=== PATIENT | female | born 1950 | race Caucasian/White ===

== ENCOUNTER 2019-04-08 18:57 | Inpatient (IN) | payer MEDICARE, MEDICAID ==
[2019-04-08 20:26] LABS: Analyzer IN Cardio ER; Base Excess (BEa) 0.9 mEq/L (-2.0 to +3.0); Calcium, Ionized 1.11 mmol/L (1.12-1.30); Carboxyhemoglobin (COHb) 5.7 gm% (0.0-3.0); Hemoglobin (Hb) 16.2 g/dL (12.0-16.0)
[2019-04-08] MEDS ORDERED: Albuterol Sulfate 2.5 mg/3 ml Neb ONE (20:28)
[2019-04-08 20:32] LABS: ALV-art Gradient 97.635 (0-20); CO2 Tension 60.1 mmHg (35.0-45.0); O2 Tension (PaO2) 55.4 mmHg (> 80.0); Puncture Site LRA
[2019-04-08 22:02] VITALS: BMI 31.8
[2019-04-08] MEDS ORDERED: Senokot S 8.6-50 MG TAB PO PRN (22:47)
[2019-04-08] MEDS ORDERED: Ipratropium Bromide 2.5 ml Neb NEB PRN (23:01)
[2019-04-09 01:40] LABS: Anion Gap 13 mmol/L (10-20); BUN (Urea Nitrogen) 10 mg/dL (9.8-20.1); Calc. Creatinine Clearance 113 mL/min (70-130); Calcium 8.6 mg/dL (7.8-10.44); Carbon Dioxide 27 mmol/L (23-31); Chloride 100 mmol/L (98-107); Estimated GFR-MDRD 89; Glucose 118 mg/dL (80-115); Potassium 5.6 mmol/L (3.5-5.1); Sodium 134 mmol/L (136-145)
--- NOTE | 2019-04-09 01:45 | HP ---
CHIEF COMPLAINT: Shortness of breath. HISTORY OF PRESENT ILLNESS: The patient is a very pleasant 68-year-old female with headache, history of COPD. She is currently on 2 L of oxygen day and night, who presents to the hospital with complaints of sudden onset of shortness of breath. The patient continues to smoke about 2 packs a day and she has severe COPD with 2 L of oxygen. The patient states that she has been feeling well. However, today, she started having sudden onset of worsening shortness of breath. She tried neb treatments a few times in the day. However, her shortness of breath did not improve, so she came into the ER for further evaluation. She also reports cough x1 week, however has no productive sputum. The patient initially was found to be hypoxic in the ER. She was initially given breathing treatments and was put on oxygen and then on BiPAP and was admitted into the hospital for further evaluation. PAST MEDICAL HISTORY: She has history of COPD. She currently does not have a watcher automat long goods. The patient denies any history of heart disease. PAST SURGICAL HISTORY: She has had left knee arthroscopy. She has also had some spinal surgery and laminectomy. She has also had tubal ligation. SOCIAL HISTORY: She drinks every day, less than 5 drinks per day. She denies any drug use. However, she currently smokes 2 packs a day. She is currently do not resuscitate. I spoke with the patient and she agreed. She did not want any intubation, no CPR, no chest compressions. FAMILY HISTORY: Paternal history of hypertension. Maternal history of cardiac disease and aneurysms. ALLERGIES: SHE IS ALLERGIC TO PENICILLIN. MEDICATIONS: Lyrica 75 mg daily and also some DuoNeb that she takes as needed. The other medications she is not sure, I have advised her to bring a list or ask her family to bring in the list. REVIEW OF SYSTEMS: All negative except for the ones mentioned above in the HPI. PHYSICAL EXAMINATION: VITAL SIGNS: As of the following; temperature of 98.7, heart rate of 105, respirations were 22, blood pressure 109/59. GENERAL: She is awake, alert, currently on a BiPAP, oriented x3. She does not appear in any distress. HEENT: Normocephalic, atraumatic. No lymphadenopathy noted. Pupils are equal and reactive to light. CV: S1 and S2 present. No murmurs, rubs, or gallops. She appears to be sinus tach. LUNGS: Mild expiratory wheezing all over. ABDOMEN: Soft and nontender. Bowel sounds are present x2. EXTREMITIES: No edema. Pedal pulses are present x2. NEUROLOGIC: No focal deficits noted. SKIN: No cuts, lesions or bruises noted. LABORATORY RESULTS: As of the following; WBCs of 6.4, hemoglobin of 16.6, hematocrit of 57.6, her platelets are 230. Chemistry, sodium of 138, potassium of 5.6, BUN of 8, creatinine of 0.67. Repeat potassium was 5.3. Her BNP was 108. She did have a chest x-ray done, which indicated moderate cardiomegaly, mild with pulmonary vascular congestion. ASSESSMENT AND PLAN: The patient is a 68-year-old female, who presents to the hospital with sudden onset of shortness of breath. 1. Acute hypoxemic and hypercapnic respiratory failure, most likely secondary to chronic obstructive pulmonary disease exacerbation versus cardiac. We will get an echocardiogram. We will start her on DuoNeb. We will also start her on some steroids. Pulmonary critical is going to see her. I will start her on prophylactic antibiotics. Her BNP was just mildly elevated at 108. 2. Shortness of breath could be secondary to chronic obstructive pulmonary disease exacerbation. I do not see an echocardiogram. I will also go ahead and order an echocardiogram on this patient. She states that she has never really had any heart issues or strokes. However, given her history of smoking, I will order an echocardiogram. We will start her on some prophylactic antibiotics. Also, she did have a respiratory viral swab which was negative for influenza. She is currently on a BiPAP 10 or 5. Her sats have been maintained. I have advised her against smoking. She does not want a nicotine patch. We will continue the DuoNeb only with ipratropium to prevent any further tachycardia. She is currently in the IMCU and will be seen by Pulmonary Critical Care. I will also start her on some IV steroids. 3. She has significant polycythemia. This could be secondary to her severe chronic obstructive pulmonary disease. However, I see no trends that she has always had a significant amount of polycythemia. We will continue to monitor. However, this may warrant further investigation if it continues and does not improve. 4. Hyperkalemia. Her potassium initially was 5.6. Her repeat one was 5.3. I have ordered another stat BMP, which is pending. 5. Deep venous thrombosis prophylaxis. We will put the patient on subcu heparin or Lovenox. Job ID: [id number]
[2019-04-09] MEDS: Ipratropium Bromide 2.5 ml Neb NEB SCH ×3 (02:07→11:03)
[2019-04-09 05:03] LABS: Anion Gap 12 mmol/L (10-20); BUN (Urea Nitrogen) 11 mg/dL (9.8-20.1); Calc. Creatinine Clearance 115 mL/min (70-130); Calcium 8.7 mg/dL (7.8-10.44); Carbon Dioxide 29 mmol/L (23-31); Chloride 99 mmol/L (98-107); Estimated GFR-MDRD Greater than 90; Glucose 117 mg/dL (80-115); Potassium 5.1 mmol/L (3.5-5.1); Sodium 135 mmol/L (136-145)
[2019-04-09 05:04] LABS: #Lymphocytes 0.9 thou/uL (1.20-3.40); #Monocytes 0.1 thou/uL (0.11-0.59); #Neutrophils 3.8 thou/uL (1.40-6.50); %Basophils 0.8 % (0.0-1.0); %Eosinophils 0.4 % (0.0-10.0); %Lymphocytes 18.4 % (21.0-51.0); %Monocytes 2.2 % (0.0-10.0); %Neutrophils 78.2 % (42.0-75.0); Hypochromia SLIGHT = 6-15 cells (100X) (0-5/hpf); MDiff Complete? YES; Mean Corpuscular HGB CONC 29.6 g/dL (32.0-36.0); Mean Corpuscular Volume 87.9 fL (78.0-98.0); Mean Platelet Volume 9.9 fL (7.4-10.4); Platelet Count 219 thou/uL (130-400); Platelet Morphology Comment Appears Adequate; Polychromasia SLIGHT = 2-3 cells (100X) (0-2/hpf); Red Blood Cell (RBC) Count 5.78 mill/uL (4.20-5.40); White Blood Cell (WBC) Count 4.8 thou/uL (4.8-10.8)
[2019-04-09] MEDS: Enoxaparin Sodium 40 MG/0.4 ML SYRINGE SC SCH (08:59)
[2019-04-09] MEDS ORDERED: methylPREDNISolone Sod Succ 40 MG VIAL IVP SCH (09:00)
--- NOTE | 2019-04-09 10:25 | PDOC.PN ---
- Subjective Encounter Start Date: 04/09/19 Encounter Start Time: 10:24 Ms. Orellana was seen today in follow-up of COPD exacerbation. She says she feels back to her baseline. She is breathing better. She denies chest pain or cough. She says she is compliant with her nebulizer treatments at home, but she does not know the names. She also admits to smoking 2 ppd. She says she has cut back from 3ppd. - Objective Resuscitation Status - Order Detail: 04/08/19 23:00 Resuscitation Status Routine Resuscitation Status: DNAR: NO Resuscitation Discussed with: per patient MAR Reviewed: Yes Vital Signs & Weight: Vital Signs (12 hours) Temp Pulse Resp Pulse Ox 04/09/19 08:25 98.4 F 04/09/19 06:30 86 04/09/19 06:18 86 17 94 L 04/09/19 04:02 98.8 F 04/09/19 02:08 91 04/09/19 00:09 98.1 F 04/08/19 23:01 94 L Weight Weight 191 lb 9.6 oz Most Recent Monitor Data Heart Rate from ECG 110 NIBP 89/62 NIBP BP-Mean 71 Respiration from ECG 22 SpO2 97 I&O: 04/08/19 04/09/19 04/10/19 06:59 06:59 06:59 Intake Total 20 Output Total 240 Balance -220 Result Diagrams: 04/09/19 04:23 04/09/19 04:23 Phys Exam - Physical Examination HEENT: PERRLA Respiratory: no wheezing, no rales, no rhonchi, clear to auscultation bilateral Cardiovascular: RRR, no significant murmur, no rub Gastrointestinal: soft, non-tender, no distention, positive bowel sounds Musculoskeletal: no edema, pulses present Neurological: non-focal, moves all 4 limbs Dx/Plan (1) COPD exacerbation Code(s): J44.1 - CHRONIC OBSTRUCTIVE PULMONARY DISEASE W (ACUTE) EXACERBATION Status: Acute (2) Acute and chronic respiratory failure with hypoxia Code(s): J96.21 - ACUTE AND CHRONIC RESPIRATORY FAILURE WITH HYPOXIA Status: Acute (3) Tobacco abuse Code(s): Z72.0 - TOBACCO USE Status: Acute - Plan * COPD exacerbation- continue Duonebs, and Dulera was added. Streoids have been changed to oral * Continue Empiric antibiotics * Tobacco Abuse- discussed smoking cessation * Will follow-up of Echo * She likely can be transitioned out of the IMCU.
[2019-04-09] MEDS: Nicotine 14 MG PATCH TD SCH (10:39)
--- NOTE | 2019-04-09 10:48 | CON ---
DATE OF CONSULTATION: HISTORY OF PRESENT ILLNESS: Viri Orellana is a 68-year-old morbidly obese female who has been living in [place] for 31 years. She sees a local physician there, has severe COPD. Says that on a good day, she can walk maybe half a block. She still smokes two packs a day. She says when she tried to quit smoking, her leg started to swell, she went back to smoking again. She has had neb treatment yesterday when she presented with coughing and shortness of breath. No chest pain. No chills or sweats. She was placed on noninvasive ventilation to which she says she is feeling better. PAST MEDICAL HISTORY: Pertinent otherwise for severe COPD, chronic back pain from previous spinal surgery done, surprisingly otherwise no history of diabetes or hypertension. PREVIOUS SURGERIES: Noted laminectomy and left knee surgery. Tobacco 2 packs a day. Alcohol 5 drinks a day. HOME MEDICINE: Includes apparently 1. Lyrica 75. 2. Low-flow O2, apparently some other medicine. She had a CT lung done in 2017, which did not show any lung nodules. 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 REVIEW OF SYSTEMS: Ten-point negative. PHYSICAL EXAMINATION: VITAL SIGNS: Sats are 92% on 2 L, temperature 98, respirations 26, blood pressure CHEST: Decreased breath sounds. Prolonged expiration. CARDIAC: Normal S1, S2. No gallops. ABDOMEN: No masses. PO2 is 55, pCO2 60, pH 7.3. Lytes were normal. BNP is unremarkable. Chest x-ray shows chronic changes. White count is 4000, platelet count is normal. IMPRESSION: 1. Chronic obstructive pulmonary disease exacerbation, bronchitis, respiratory acidosis. 2. Probably sleep apnea. 3. Probably pulmonary hypertension, cor pulmonale. PLAN: I agree with present treatments, steroids, neb treatment, supportive care. She probably needs once again outpatient sleep study to assess her status. We will follow. 70 minutes, 50% direct patient care. Job ID: [id number]
[2019-04-09] MEDS: Mometasone/Formoterol 120 PUFF INHALER INH SCH (19:35)
[2019-04-09] MEDS: guaiFENesin ER 600 MG TAB PO SCH (20:26)
[2019-04-09] MEDS: Acetaminophen 325 MG TAB PO PRN (20:26)
[2019-04-09] MEDS ORDERED: Prevnar 13-Val Conj/PF 0.5 ML SYRINGE IM ONE (21:00)
[2019-04-10 06:11] LABS: Anion Gap 7 mmol/L (10-20); BUN (Urea Nitrogen) 13 mg/dL (9.8-20.1); Calc. Creatinine Clearance 119 mL/min (70-130); Calcium 8.6 mg/dL (7.8-10.44); Carbon Dioxide 34 mmol/L (23-31); Chloride 98 mmol/L (98-107); Estimated GFR-MDRD Greater than 90; Glucose 92 mg/dL (80-115); Potassium 4.5 mmol/L (3.5-5.1); Sodium 134 mmol/L (136-145)
[2019-04-10 06:22] LABS: #Lymphocytes 1.7 thou/uL (1.20-3.40); #Monocytes 0.5 thou/uL (0.11-0.59); #Neutrophils 3.1 thou/uL (1.40-6.50); %Basophils 0.1 % (0.0-1.0); %Eosinophils 0.1 % (0.0-10.0); %Lymphocytes 32.5 % (21.0-51.0); %Neutrophils 58.2 % (42.0-75.0); Hemoglobin 14.1 g/dL (12.0-16.0); Mean Corpuscular Hemoglobin 26.1 pg (27.0-31.0); Mean Corpuscular Volume 86.7 fL (78.0-98.0); Mean Platelet Volume 9.8 fL (7.4-10.4); Platelet Count 200 thou/uL (130-400); RBC Distribution Width 18.1 % (11.5-14.5); Red Blood Cell (RBC) Count 5.41 mill/uL (4.20-5.40); White Blood Cell (WBC) Count 5.3 thou/uL (4.8-10.8)
[2019-04-10] MEDS: Mometasone/Formoterol 120 PUFF INHALER INH SCH ×2 (08:17→18:45)
[2019-04-10] MEDS: predniSONE 20 MG TAB PO SCH (08:36)
[2019-04-10] MEDS: Enoxaparin Sodium 40 MG/0.4 ML SYRINGE SC SCH (08:37)
[2019-04-10] MEDS: Acetaminophen 325 MG TAB PO PRN ×3 (08:37→20:50)
[2019-04-10] MEDS: guaiFENesin ER 600 MG TAB PO SCH ×2 (08:37→20:43)
[2019-04-10] MEDS: Fluticasone Propionate Nasal Spray 16 gm Bottle NASAL SCH (08:37)
--- NOTE | 2019-04-10 09:05 | PDOC.PN ---
- Subjective Encounter Start Date: 04/10/19 Encounter Start Time: 09:03 Ms. Orellana was seen today in follow-up of COPD exacerbation. She is breathing better today. She still has episodes where her oxygen saturations will drop in the low 80's and high 70's, with talking and with slight movement. - Objective Resuscitation Status - Order Detail: 04/08/19 23:00 Resuscitation Status Routine Resuscitation Status: DNAR: NO Resuscitation Discussed with: per patient MAR Reviewed: Yes Vital Signs & Weight: Vital Signs (12 hours) Temp Pulse Resp Pulse Ox 04/10/19 08:16 87 22 H 96 04/10/19 08:00 27 H 04/10/19 07:52 92 L 04/10/19 07:15 97.8 F 04/10/19 03:40 97.1 F L 04/10/19 01:50 87 04/09/19 23:58 97.6 F Weight Admit Weight 191 lb 9.6 oz Weight 191 lb 11.2 oz Most Recent Monitor Data Heart Rate from ECG 88 NIBP 95/59 NIBP BP-Mean 71 Respiration from ECG 23 SpO2 96 I&O: 04/09/19 04/10/19 04/11/19 06:59 06:59 06:59 Intake Total 20 1360 Output Total 240 1120 Balance -220 240 Result Diagrams: 04/10/19 05:31 04/10/19 05:31 Phys Exam - Physical Examination HEENT: PERRLA Respiratory: wheezing present + wheeze, and decreased air movement Cardiovascular: RRR, no significant murmur, no rub Gastrointestinal: soft, non-tender, no distention, positive bowel sounds Musculoskeletal: pulses present, edema present + non-pitting edema Neurological: non-focal, normal sensation, moves all 4 limbs Dx/Plan (1) COPD exacerbation Code(s): J44.1 - CHRONIC OBSTRUCTIVE PULMONARY DISEASE W (ACUTE) EXACERBATION Status: Acute (2) Acute on chronic respiratory failure with hypoxia and hypercapnia Code(s): J96.21 - ACUTE AND CHRONIC RESPIRATORY FAILURE WITH HYPOXIA; J96.22 - ACUTE AND CHRONIC RESPIRATORY FAILURE WITH HYPERCAPNIA Status: Acute (3) Tobacco abuse Code(s): Z72.0 - TOBACCO USE Status: Chronic (4) Obesity (BMI 30.0-34.9) Code(s): E66.9 - OBESITY, UNSPECIFIED Status: Chronic - Plan * Acute on chronic respiratory failure - due to COPD exacerbation- clinically improving, but slowly * Continue Steroids, and these have been changed to oral. Continue Azithromycin , and Dulera, and Duonebs * Echo results are still pending * Possible Pulmonary Function tests later in the week * She remained in IMCU due to desaturations.
[2019-04-10] MEDS: Pregabalin 50 MG CAP PO SCH ×2 (09:13→20:43)
[2019-04-10] MEDS: Furosemide 20 MG TAB PO SCH (09:14)
[2019-04-10] MEDS: Atorvastatin Calcium 10 MG TAB PO SCH ×2 (09:49→20:44)
--- NOTE | 2019-04-10 10:49 | PRG ---
DATE OF SERVICE: 04/10/2019 SUBJECTIVE: This morning, she is better, she is less short of breath. Less cough. OBJECTIVE: VITAL SIGNS: Blood pressure is 107/54, temperature 98, pulse 96, and saturations are 88% to 92% on 2L. CHEST: Decreased breath sounds. No wheezing. CARDIAC: Normal S1 and S2. No gallops. ABDOMEN: No masses. IMPRESSION: 1. End-stage chronic obstructive pulmonary disease. 2. Ongoing tobacco abuse. 3. Morbid obesity. 4. Sleep apnea. 5. Cor pulmonale. PLAN: Unless the patient quit smoking, it is very unlikely she is going to get any better. She was told about it numerous times. We will consider switching over to some oral antibiotics or steroids. We will follow. Job ID: [id number]
--- NOTE | 2019-04-10 11:10 | PRG ---
DATE OF SERVICE: 04/10/2019 SUBJECTIVE: Viri Orellana this morning sitting on the side of the bed. OBJECTIVE: VITAL SIGNS: Sats are barely respiratory rate 26, blood pressure 107/50, temperature 98, and respiratory rate 18. CHEST: Decreased breath sounds. No wheezing. CARDIAC: Normal S1 and S2. No gallops. ABDOMEN: No masses. IMPRESSION: end-stage chronic obstructive pulmonary disease, and cor pulmonale. LABORATORY DATA: Unremarkable. PLAN: Switch over to oral medication or prednisone. She is going to either require nocturnal ventilator as she wished to or she is going to require repeat sleep study. We will follow. Job ID: [id number]
[2019-04-10] MEDS: Nicotine 14 MG PATCH TD SCH (11:45)
[2019-04-10] MEDS ORDERED: Pregabalin 50 MG CAP PO SCH (21:00)
[2019-04-11] MEDS: Acetaminophen 325 MG TAB PO PRN ×4 (06:32→21:15)
[2019-04-11] MEDS: Mometasone/Formoterol 120 PUFF INHALER INH SCH ×2 (06:42→19:00)
[2019-04-11] MEDS: Atorvastatin Calcium 10 MG TAB PO SCH ×2 (08:59→21:18)
[2019-04-11] MEDS: Potassium Chloride 20 MEQ TAB PO SCH (08:59)
[2019-04-11] MEDS: Enoxaparin Sodium 40 MG/0.4 ML SYRINGE SC SCH (08:59)
[2019-04-11] MEDS: guaiFENesin ER 600 MG TAB PO SCH ×2 (08:59→21:18)
[2019-04-11] MEDS: predniSONE 20 MG TAB PO SCH (08:59)
[2019-04-11] MEDS: Furosemide 20 MG TAB PO SCH (08:59)
[2019-04-11] MEDS: Fluticasone Propionate Nasal Spray 16 gm Bottle NASAL SCH (09:00)
--- NOTE | 2019-04-11 10:33 | PRG ---
DATE OF SERVICE: 04/11/2019 SUBJECTIVE: She is a morbidly obese female, still short of breath. OBJECTIVE: VITAL SIGNS: Saturations 95% on 3 L, blood pressure 120/70, pulse rate of 18. CHEST: Decreased breath sounds. No wheezing. CARDIAC: Normal S1 and S2. No gallops. ABDOMEN: No masses. IMPRESSION: End-stage chronic obstructive pulmonary disease, tobacco abuse, morbid obesity, probably sleep apnea. PLAN: P.o. antibiotics. P.o. neb treatments. Steroids. She can probably transferred out of the MICU. We will follow. Job ID: [id number]
[2019-04-11] MEDS: Nicotine 14 MG PATCH TD SCH (10:46)
--- NOTE | 2019-04-11 14:06 | PDOC.PN ---
- Subjective Encounter Start Date: 04/11/19 Encounter Start Time: 07:45 Subjective: breathing better -: says she is amb in room - Objective Resuscitation Status - Order Detail: 04/08/19 23:00 Resuscitation Status Routine Resuscitation Status: DNAR: NO Resuscitation Discussed with: per patient MAR Reviewed: Yes Vital Signs & Weight: Vital Signs (12 hours) Temp Pulse Resp Pulse Ox 04/11/19 11:03 98.8 F 99 20 91 L 04/11/19 08:00 95 04/11/19 07:03 98.6 F 04/11/19 06:43 93 L 04/11/19 06:41 85 19 93 L 04/11/19 03:42 97.8 F Weight Admit Weight 191 lb 9.6 oz Weight 190 lb 14.4 oz Most Recent Monitor Data Heart Rate from ECG 99 NIBP 125/88 NIBP BP-Mean 100 Respiration from ECG 19 SpO2 93 I&O: 04/10/19 04/11/19 04/12/19 06:59 06:59 06:59 Intake Total 1360 2660 Output Total 1120 4050 250 Balance 240 -1390 -250 Result Diagrams: 04/10/19 05:31 04/10/19 05:31 Phys Exam - Physical Examination HEENT: PERRLA, moist MMs Neck: no JVD, supple Respiratory: no rales, wheezing present Cardiovascular: RRR, no significant murmur Gastrointestinal: soft, non-tender, positive bowel sounds Musculoskeletal: no edema, pulses present Neurological: non-focal, moves all 4 limbs Psychiatric: normal affect, A&O x 3 Dx/Plan (1) Acute on chronic respiratory failure with hypoxia and hypercapnia Code(s): J96.21 - ACUTE AND CHRONIC RESPIRATORY FAILURE WITH HYPOXIA; J96.22 - ACUTE AND CHRONIC RESPIRATORY FAILURE WITH HYPERCAPNIA Status: Acute (2) COPD exacerbation Code(s): J44.1 - CHRONIC OBSTRUCTIVE PULMONARY DISEASE W (ACUTE) EXACERBATION Status: Acute (3) Obesity (BMI 30.0-34.9) Code(s): E66.9 - OBESITY, UNSPECIFIED Status: Chronic (4) Tobacco abuse Code(s): Z72.0 - TOBACCO USE Status: Chronic - Plan hemostable -: may tx to med floor -: continue steroids, levaquin, dulera, nebs -: lipitor, lasix and lyrica -: dc plan in 24 hrs if stable, to ambulate more as tolerated * . Review of Systems - Medications/Allergies Allergies/Adverse Reactions: Allergies Allergy/AdvReac Type Severity Reaction Status Date / Time bee venom protein (honey bee) Allergy Verified 04/08/19 22:03 codeine Allergy Hives Verified 04/08/19 22:03 Penicillins Allergy Verified 04/08/19 22:03 tramadol Allergy Hives Verified 04/08/19 22:03 gabapentin AdvReac DIZZINESS Verified 04/08/19 22:03 Medications: Current Medications Acetaminophen (Tylenol) 650 mg PO Q4H PRN PRN Reason: Headache/Fever/Mild Pain (1-3) Last Admin: 04/11/19 10:46 Dose: 650 mg Albuterol/Ipratropium (Duoneb) 3 ml NEB [id number] Last Admin: 04/11/19 11:03 Dose: 3 ml Albuterol/Ipratropium (Duoneb) 3 ml NEB Q4H PRN PRN Reason: SOB &/or Wheezing Atorvastatin Calcium (Lipitor) 10 mg PO BID [facility] Last Admin: 04/11/19 08:59 Dose: 10 mg Enoxaparin Sodium (Lovenox) 40 mg SC 0900 [facility] Last Admin: 04/11/19 08:59 Dose: 40 mg Fluticasone Propionate (Flonase Nasal [place]) 1 gm NASAL DAILY [facility] Last Admin: 04/11/19 09:00 Dose: 1 spr Furosemide (Lasix) 20 mg PO DAILY [facility] Last Admin: 04/11/19 08:59 Dose: 20 mg Guaifenesin (Mucinex) 600 mg PO Q12HR [facility] Last Admin: 04/11/19 08:59 Dose: 600 mg Levofloxacin (Levaquin) 500 mg PO 0600 [facility] Stop: 04/16/19 06:01 Last Admin: 04/11/19 05:38 Dose: 500 mg Mometasone Furoate/Formoterol Fumar (Dulera 200 Mcg/5 Mcg Inhaler) 2 puff INH BID-RT [facility] Last Admin: 04/11/19 06:42 Dose: 2 puff Nicotine (Nicoderm Patch) 14 mg TD Q24HR [facility] Last Admin: 04/11/19 10:46 Dose: 14 mg Potassium Chloride (K-Dur) 20 meq PO DAILY [facility] Last Admin: 04/11/19 08:59 Dose: 20 meq Prednisone (Prednisone) 40 mg PO QAM-WM RAMON Last Admin: 04/11/19 08:59 Dose: 40 mg Pregabalin (Lyrica) 200 mg PO HS [facility] Senna/Docusate Sodium (Senokot S) 2 tab PO BID PRN PRN Reason: Constipation Last Admin: 04/10/19 16:18 Dose: 2 tab
[2019-04-11] MEDS: Pregabalin 50 MG CAP PO SCH (21:16)
[2019-04-12] MEDS: Mometasone/Formoterol 120 PUFF INHALER INH SCH ×2 (06:23→19:30)
[2019-04-12] MEDS: Acetaminophen 325 MG TAB PO PRN ×4 (06:50→23:31)
[2019-04-12] MEDS: Furosemide 20 MG TAB PO SCH (08:31)
[2019-04-12] MEDS: Atorvastatin Calcium 10 MG TAB PO SCH ×2 (08:31→20:31)
[2019-04-12] MEDS: predniSONE 20 MG TAB PO SCH (08:31)
[2019-04-12] MEDS: Potassium Chloride 20 MEQ TAB PO SCH (08:31)
[2019-04-12] MEDS: guaiFENesin ER 600 MG TAB PO SCH ×2 (08:31→20:31)
[2019-04-12] MEDS: Enoxaparin Sodium 40 MG/0.4 ML SYRINGE SC SCH (08:31)
[2019-04-12] MEDS: Fluticasone Propionate Nasal Spray 16 gm Bottle NASAL SCH (08:32)
--- NOTE | 2019-04-12 09:04 | PRG ---
DATE OF SERVICE: 04/12/2019 SUBJECTIVE: Viri Orellana, this morning, she is better. OBJECTIVE: VITAL SIGNS: Saturations are 96% on 3 L, respiratory , temperature 97, pulse , blood pressure 104/68. CHEST: Decreased breath sounds. No wheezing. CARDIAC: Normal S1 and S2. No gallops. ABDOMEN: No masses. IMPRESSION: End-stage chronic obstructive pulmonary disease, morbid obesity, tobacco abuse. PLAN: Continue PT, supportive care, baseline PFT. DISPOSITION: Home in the next several days. Job ID: [id number]
[2019-04-12] MEDS: Nicotine 14 MG PATCH TD SCH (11:47)
--- NOTE | 2019-04-12 14:18 | PDOC.PN ---
- Subjective Encounter Start Date: 04/12/19 Encounter Start Time: 10:30 Subjective: breathing better -: is amb in room on nasal canula - Objective Resuscitation Status - Order Detail: 04/08/19 23:00 Resuscitation Status Routine Resuscitation Status: DNAR: NO Resuscitation Discussed with: per patient MAR Reviewed: Yes Vital Signs & Weight: Vital Signs (12 hours) Temp Pulse Resp BP Pulse Ox Pulse Ox Pulse Ox 04/12/19 10:07 99 18 93 L 04/12/19 09:57 90 L 88 L 04/12/19 08:00 96 04/12/19 07:51 97.6 F 93 20 104/68 96 04/12/19 06:24 89 18 97 04/12/19 06:23 89 18 97 Weight Admit Weight 191 lb 9.6 oz Weight 190 lb 14.4 oz Most Recent Monitor Data Heart Rate from ECG 108 NIBP 121/76 NIBP BP-Mean 91 Respiration from ECG 18 SpO2 89 I&O: 04/11/19 04/12/19 04/13/19 06:59 06:59 06:59 Intake Total 2660 240 Output Total 4050 2209 Balance -1390 -2209 240 Result Diagrams: 04/10/19 05:31 04/10/19 05:31 Phys Exam - Physical Examination HEENT: PERRLA, moist MMs Neck: no JVD, supple Respiratory: no wheezing, no rales rhonchi+ Cardiovascular: RRR, no significant murmur Gastrointestinal: soft, non-tender, positive bowel sounds Musculoskeletal: no edema, pulses present Neurological: non-focal, moves all 4 limbs Psychiatric: normal affect, A&O x 3 Dx/Plan (1) Acute on chronic respiratory failure with hypoxia and hypercapnia Code(s): J96.21 - ACUTE AND CHRONIC RESPIRATORY FAILURE WITH HYPOXIA; J96.22 - ACUTE AND CHRONIC RESPIRATORY FAILURE WITH HYPERCAPNIA Status: Acute Comment : resolving (2) COPD exacerbation Code(s): J44.1 - CHRONIC OBSTRUCTIVE PULMONARY DISEASE W (ACUTE) EXACERBATION Status: Acute (3) Obesity (BMI 30.0-34.9) Code(s): E66.9 - OBESITY, UNSPECIFIED Status: Chronic (4) Tobacco abuse Code(s): Z72.0 - TOBACCO USE Status: Chronic - Plan hemostable -: dc plan in am if ok with pulm -: is on levaquin, nebs, prednisone, dulera -: lyrica, lasix and lipitor -: to ambulate in hallway as tolerated * . Review of Systems - Medications/Allergies Allergies/Adverse Reactions: Allergies Allergy/AdvReac Type Severity Reaction Status Date / Time bee venom protein (honey bee) Allergy Verified 04/08/19 22:03 codeine Allergy Hives Verified 04/08/19 22:03 Penicillins Allergy Verified 04/08/19 22:03 tramadol Allergy Hives Verified 04/08/19 22:03 gabapentin AdvReac DIZZINESS Verified 04/08/19 22:03 Medications: Current Medications Acetaminophen (Tylenol) 650 mg PO Q4H PRN PRN Reason: Headache/Fever/Mild Pain (1-3) Last Admin: 04/12/19 06:50 Dose: 650 mg Albuterol/Ipratropium (Duoneb) 3 ml NEB [id number] SCH Last Admin: 04/12/19 10:07 Dose: 3 ml Albuterol/Ipratropium (Duoneb) 3 ml NEB Q4H PRN PRN Reason: SOB &/or Wheezing Atorvastatin Calcium (Lipitor) 10 mg PO BID [facility] Last Admin: 04/12/19 08:31 Dose: 10 mg Enoxaparin Sodium (Lovenox) 40 mg SC 0900 [facility] Last Admin: 04/12/19 08:31 Dose: 40 mg Fluticasone Propionate (Flonase Nasal [place]) 1 gm NASAL DAILY [facility] Last Admin: 04/12/19 08:32 Dose: 1 spr Furosemide (Lasix) 20 mg PO DAILY [facility] Last Admin: 04/12/19 08:31 Dose: 20 mg Guaifenesin (Mucinex) 600 mg PO Q12HR [facility] Last Admin: 04/12/19 08:31 Dose: 600 mg Levofloxacin (Levaquin) 500 mg PO 0600 [facility] Stop: 04/16/19 06:01 Last Admin: 04/12/19 05:23 Dose: 500 mg Mometasone Furoate/Formoterol Fumar (Dulera 200 Mcg/5 Mcg Inhaler) 2 puff INH BID-RT [facility] Last Admin: 04/12/19 06:23 Dose: 2 puff Nicotine (Nicoderm Patch) 14 mg TD Q24HR [facility] Last Admin: 06/03/19 11:47 Dose: 14 mg Potassium Chloride (K-Dur) 20 meq PO DAILY [facility] Last Admin: 04/12/19 08:31 Dose: 20 meq Prednisone (Prednisone) 40 mg PO QAM-WM [facility] Last Admin: 04/12/19 08:31 Dose: 40 mg Pregabalin (Lyrica) 200 mg PO HS [facility] Last Admin: 04/11/19 21:16 Dose: 200 mg Senna/Docusate Sodium (Senokot S) 2 tab PO BID PRN PRN Reason: Constipation Last Admin: 04/10/19 16:18 Dose: 2 tab
[2019-04-12] MEDS: Pregabalin 50 MG CAP PO SCH (20:30)
[2019-04-13] MEDS: Acetaminophen 325 MG TAB PO PRN ×2 (05:22→10:23)
[2019-04-13] MEDS: Mometasone/Formoterol 120 PUFF INHALER INH SCH (06:32)
[2019-04-13] MEDS: Potassium Chloride 20 MEQ TAB PO SCH (08:55)
[2019-04-13] MEDS: predniSONE 20 MG TAB PO SCH (08:55)
[2019-04-13] MEDS: Furosemide 20 MG TAB PO SCH (08:56)
[2019-04-13] MEDS: Fluticasone Propionate Nasal Spray 16 gm Bottle NASAL SCH (08:56)
[2019-04-13] MEDS: guaiFENesin ER 600 MG TAB PO SCH (08:56)
[2019-04-13] MEDS: Atorvastatin Calcium 10 MG TAB PO SCH (08:56)
[2019-04-13] MEDS: Enoxaparin Sodium 40 MG/0.4 ML SYRINGE SC SCH (08:56)
--- NOTE | 2019-04-13 09:29 | PRG ---
DATE OF SERVICE: 04/13/2019 SUBJECTIVE: She is better this morning. Less short of breath. She is scheduled for a PFT, baseline. OBJECTIVE: VITAL SIGNS: Pulse 85, respiratory rate 22, saturations are 94% on 3 L, and blood pressure 140/61. CHEST: Occasional wheeze. CARDIAC: Normal S1 and S2. No gallops. ABDOMEN: No masses. IMPRESSION: 1. End-stage chronic obstructive pulmonary disease. 2. Ongoing tobacco abuse. PLAN: Post PFT, she can be discharged home. Tapering dose of prednisone. Follow up with the primary care physician. Job ID: [id number]
[2019-04-13 11:44] VITALS: BP 136/72; TEMP 97.9
--- NOTE | 2019-04-13 12:01 | PDOC.PN ---
- Subjective Encounter Start Date: 04/13/19 Encounter Start Time: 09:00 Subjective: breathing better, no sob -: ambulates with walker -: is scheduled for PFT this am - Objective Resuscitation Status - Order Detail: 04/08/19 23:00 Resuscitation Status Routine Resuscitation Status: DNAR: NO Resuscitation Discussed with: per patient MAR Reviewed: Yes Vital Signs & Weight: Vital Signs (12 hours) Temp Pulse Resp BP Pulse Ox 04/13/19 11:44 97.9 F 90 22 H 136/72 93 L 04/13/19 08:00 85 22 H 114/61 94 L 04/13/19 06:35 86 16 90 L 04/13/19 06:32 86 16 90 L Weight Admit Weight 191 lb 9.6 oz Weight 190 lb 14.4 oz Most Recent Monitor Data Heart Rate from ECG 108 NIBP 121/76 NIBP BP-Mean 91 Respiration from ECG 18 SpO2 89 I&O: 04/12/19 04/13/19 04/14/19 06:59 06:59 06:59 Intake Total 2140 240 Output Total 2209 Balance -2209 2140 240 Result Diagrams: 04/10/19 05:31 04/10/19 05:31 Phys Exam - Physical Examination HEENT: PERRLA, moist MMs Neck: no JVD, supple Respiratory: no wheezing, no rales Cardiovascular: RRR, no significant murmur Gastrointestinal: soft, non-tender, positive bowel sounds Musculoskeletal: no edema, pulses present Neurological: non-focal, moves all 4 limbs Psychiatric: normal affect, A&O x 3 Dx/Plan (1) Acute on chronic respiratory failure with hypoxia and hypercapnia Code(s): J96.21 - ACUTE AND CHRONIC RESPIRATORY FAILURE WITH HYPOXIA; J96.22 - ACUTE AND CHRONIC RESPIRATORY FAILURE WITH HYPERCAPNIA Status: Resolved Comment: resolving (2) COPD exacerbation Code(s): J44.1 - CHRONIC OBSTRUCTIVE PULMONARY DISEASE W (ACUTE) EXACERBATION Status: Resolved (3) Obesity (BMI 30.0-34.9) Code(s): E66.9 - OBESITY, UNSPECIFIED Status: Chronic (4) Tobacco abuse Code(s): Z72.0 - TOBACCO USE Status: Chronic - Plan hemostable -: dc pt home after PFT's are done -: meds faxed to her pharmacy -: counselled reg smoking cessation * . Review of Systems - Medications/Allergies Allergies/Adverse Reactions: Allergies Allergy/AdvReac Type Severity Reaction Status Date / Time bee venom protein (honey bee) Allergy Verified 04/08/19 22:03 codeine Allergy Hives Verified 04/08/19 22:03 Penicillins Allergy Verified 04/08/19 22:03 tramadol Allergy Hives Verified 04/08/19 22:03 gabapentin AdvReac DIZZINESS Verified 04/08/19 22:03 Medications: Current Medications Acetaminophen (Tylenol) 650 mg PO Q4H PRN PRN Reason: Headache/Fever/Mild Pain (1-3) Last Admin: 04/13/19 10:23 Dose: 650 mg Albuterol/Ipratropium (Duoneb) 3 ml NEB [id number] SCH Last Admin: 04/13/19 10:22 Dose: Not Given Albuterol/Ipratropium (Duoneb) 3 ml NEB Q4H PRN PRN Reason: SOB &/or Wheezing Atorvastatin Calcium (Lipitor) 10 mg PO BID [facility] Last Admin: 04/13/19 08:56 Dose: 10 mg Enoxaparin Sodium (Lovenox) 40 mg SC 0900 [facility] Last Admin: 04/13/19 08:56 Dose: 40 mg Fluticasone Propionate (Flonase Nasal [place]) 1 gm NASAL DAILY [facility] Last Admin: 04/13/19 08:56 Dose: 1 spr Furosemide (Lasix) 20 mg PO DAILY [facility] Last Admin: 04/13/19 08:56 Dose: 20 mg Guaifenesin (Mucinex) 600 mg PO Q12HR [facility] Last Admin: 04/13/19 08:56 Dose: 600 mg Levofloxacin (Levaquin) 500 mg PO 0600 [facility] Stop: 04/16/19 06:01 Last Admin: 04/13/19 05:19 Dose: 500 mg Mometasone Furoate/Formoterol Fumar (Dulera 200 Mcg/5 Mcg Inhaler) 2 puff INH BID-RT [facility] Last Admin: 04/13/19 06:32 Dose: 2 puff Nicotine (Nicoderm Patch) 14 mg TD Q24HR [facility] Last Admin: 04/12/19 11:47 Dose: 14 mg Potassium Chloride (K-Dur) 20 meq PO DAILY [facility] Last Admin: 04/13/19 08:55 Dose: 20 meq Prednisone (Prednisone) 40 mg PO QAM-WM [facility] Last Admin: 04/13/19 08:55 Dose: 40 mg Pregabalin (Lyrica) 200 mg PO HS [facility] Last Admin: 04/12/19 20:30 Dose: 200 mg Senna/Docusate Sodium (Senokot S) 2 tab PO BID PRN PRN Reason: Constipation Last Admin: 04/10/19 16:18 Dose: 2 tab
--- NOTE | 2019-04-14 07:47 | DIS ---
DATE OF ADMISSION: 04/08/2019 DATE OF DISCHARGE: 04/13/2019 DISCHARGE DISPOSITION: To home. PRIMARY DISCHARGE DIAGNOSES: Acute on chronic respiratory failure with hypoxia and hypercapnia, chronic obstructive pulmonary disease exacerbation. SECONDARY DISCHARGE DIAGNOSES: Tobacco abuse and obesity. PROCEDURES DONE DURING HOSPITALIZATION: Echo with 2D Doppler done showed EF of 60% to 65%, [id number] mitral regurgitation, [id number] tricuspid regurgitation was seen. Chest x-ray done on the day of admission showed moderate cardiomegaly with pulmonary vascular congestion. No airspace opacity, pleural effusion, or pneumothorax was seen. Blood cultures x2, no growth. Influenza A and B antigens were negative. Hemoglobin and hematocrit of 14 and 46, platelet count 200, MCV is 86. Blood gas done on arrival showed a pH of 7.30, pCO2 of 60, pO2 of 55. BNP was 108. INPATIENT CONSULT: Dr. Griffin for Pulmonology. DISCHARGE MEDICATIONS: 1. Prednisone 10 mg twice daily for 2 days, then daily for 3 days, and to stop. 2. Nicoderm transdermal patch 14 mg daily for another 10 days and to stop. 3. Dulera 200/5 mcg two puffs twice daily. 4. DuoNeb q.6 hours p.r.n. 5. Zocor 20 mg daily. 6. Lyrica 200 mg daily. 7. Lasix 20 mg daily. 8. Potassium chloride 20 mEq p.o. daily. 9. Aspirin 81 mg p.o. daily. ALLERGIES: BEE VENOM, CODEINE, PENICILLIN, TRAMADOL, AND GABAPENTIN. DISCHARGE PLAN: The patient to follow up with primary care physician in 1 week and she also needs to see Dr. Griffin in 2 weeks. BRIEF COURSE DURING HOSPITALIZATION: The patient initially came to ER on with complaints of shortness of breath. The patient apparently was smoking 2 packs a day with history of severe COPD on 2 L oxygen at home. The patient had acute respiratory failure with hypoxia and hypercapnia and was placed on BiPAP initially and admitted to [facility]. The patient was weaned off BiPAP gradually. She has remained hemodynamically stable. She was on steroids with empiric antibiotics and nebulizations. Her medications were optimized during her stay here. The patient has had consultation with Dr. Griffin for Pulmonology. She was counseled with regard to smoking cessation. She is on a Nicoderm patch at present. She is at her home dose of 2 L by nasal cannula prior to discharge and is ambulating in the room. Please see a [id number] documentation for the day of discharge on [employer]. Job ID: [id number]
--- NOTE | 2019-04-14 13:38 | PFT ---
PATIENT HISTORY: HEIGHT: 55 WEIGHT:190 SMOKER: YES HOW LON PACKS PER DAY:2.5 PRODUCTIVE COUGH: NO LUNG DISEASE: YES PHYSICIAN INTERPRETATION FINAL REPORT: Patient had fair effort and cooperation. FVC 1.98 (61%), FEV1 1.02 (42%) FEV1/FVC 0.52 There is a reduction the both the FEV1 and the FVC. The ratio is consistent with obstructive air flow limitation. There is near significant improvement in the FEV1 and the FVC following administration of a bronchodilator. IMPRESSION: Overall, these pulmonary function studies are most consistent with severe obstructive air flow limitation with near significant reversibility. Clinical correlation is mandatory as these are inpatient studies. Pre Billing Specialist: JITENDRA Fraud Prevention Analyst: JITENDRA BELLA
== END 2019-04-13 13:35 | disposition home or self-care (01) | DRG 190 ==
LOC: ERS 18:57 → IMCU/EMU 21:40 → T4-A 04-11 17:27
PROVIDERS: ADMIT Internal Medicine; ATTEND Internal Medicine
DX: J44.1 Chronic obstructive pulmonary disease with (acute) exacerbation (principal); J96.02 Acute respiratory failure with hypercapnia; J96.01 Acute respiratory failure with hypoxia; F17.210 Nicotine dependence, cigarettes, uncomplicated; D75.1 Secondary polycythemia; E87.5 Hyperkalemia; Z68.31 Body mass index [BMI] 31.0-31.9, adult; E66.01 Morbid (severe) obesity due to excess calories; G47.30 Sleep apnea, unspecified; I27.81 Cor pulmonale (chronic); Z66 Do not resuscitate; I08.1 Rheumatic disorders of both mitral and tricuspid valves
CPT/HCPCS: 36415; 80048; 82805; 83605; 85025; 90471; 90670; 93306; 94060; 94640; 94660; 94664; 94727; 96360; G0009; J1650; J1956; J2920; J7512; J7611; J7620

== ENCOUNTER 2020-07-20 18:09 | Inpatient (IN) | payer MEDICARE, MEDICAID, OTHER ==
[~2020-07-20 18:09] MED LIST: Iopamidol-370 76% 500 ML 1 ML ONE
[2020-07-20] MEDS ORDERED: methylPREDNISolone Sod Succ/PF 125 MG/2 ML VIAL ONE (18:25)
[2020-07-20] MEDS ORDERED: Magnesium 2 GM/50 ML BAG (IN WATER) ONE (18:25)
[2020-07-20] MEDS ORDERED: Ketamine 50 MG/ML (10ML VIAL) ONE (18:30)
[2020-07-20 18:38] LABS: Hemoglobin 14.9 g/dL (12.0-16.0); Mean Corpuscular Hemoglobin 25.1 pg (27.0-31.0); Mean Corpuscular Volume 83.6 fL (78.0-98.0); Mean Platelet Volume 11.1 fL (7.4-10.4); Platelet Count 173 thou/uL (130-400); RBC Distribution Width 16.9 % (11.5-14.5); Red Blood Cell (RBC) Count 5.94 mill/uL (4.20-5.40); White Blood Cell (WBC) Count 7.6 thou/uL (4.8-10.8)
[2020-07-20 18:39] LABS: #Basophils 0.1 thou/uL (0.0-0.2); #Eosinphils 0.1 thou/uL (0.0-0.7); #Lymphocytes 1.8 thou/uL (1.20-3.40); #Monocytes 0.6 thou/uL (0.11-0.59); %Basophils 1.3 % (0.0-1.0); %Eosinophils 0.7 % (0.0-10.0); %Monocytes 8.2 % (0.0-10.0); %Neutrophils 65.8 % (42.0-75.0)
[2020-07-20] MEDS ORDERED: Ondansetron PF 4 MG/2 ML Vial ONE (18:40)
[2020-07-20 18:57] LABS: ALT (SGPT) 21 U/L (8-55); AST (SGOT) 22 U/L (5-34); Albumin 3.7 g/dL (3.4-4.8); Alkaline Phosphatase 93 U/L (40-110); Anion Gap 13 mmol/L (10-20); BUN (Urea Nitrogen) 14 mg/dL (9.8-20.1); Bilirubin, Total 0.6 mg/dL (0.2-1.2); CK (CPK) 94 U/L (29-168); Calc. Creatinine Clearance 0 mL/min (70-130); Calcium 8.5 mg/dL (7.8-10.44); Carbon Dioxide 33 mmol/L (23-31); Chloride 87 mmol/L (98-107); Estimated GFR-MDRD Greater than 90; Globulin 2.8 g/dL (2.4-3.5); Glucose 108 mg/dL (80-115); Lipase 23 U/L (8-78); Potassium 5.5 mmol/L (3.5-5.1); Protein, Total 6.5 g/dL (6.0-8.3); Sodium 127 mmol/L (136-145)
[2020-07-20 19:03] LABS: Hypochromia SLIGHT = 6-15 cells (100X) (0-5/hpf); Large Platelets SLIGHT; MDiff Complete? YES; Platelet Morphology Comment Appears Adequate; Polychromasia MODERATE = 3-4 cells (100X) (0-2/hpf); Stomatocytes SLIGHT = 2-5 cells (100X) (0-1/hpf); Target Cells SLIGHT = 2-5 cells (100X) (0-1/hpf)
[2020-07-20] MEDS ORDERED: Furosemide 40 MG/4 ML VIAL ONE (19:04)
[2020-07-20] MEDS ORDERED: Furosemide 20 MG/2 ML VIAL ONE (19:04)
[2020-07-20 19:19] LABS: CKMB 4.2 ng/mL (0-6.6)
--- NOTE | 2020-07-20 19:39 | RAD ---
CHEST ONE VIEW: 07/20/20 INDICATION: History of shortness of breath. COMPARISON: Prior exam dated 04/08/19. FINDINGS: There is cardiomegaly with pulmonary vascular congestion. There is a small sized right and tiny left pleural effusions. There is air space opacity in the right midline and right lower lobe. No pneumotho rax is evident. Pacer pads overlie the chest wall. IMPRESSION: Findings suspicious for mild to moderate CHF. POS: BH
[2020-07-20 20:36] LABS: Analyzer IN Cardio ER; Base Excess (BEa) 6.5 mEq/L (-2.0 to +3.0); Calcium, Ionized (arterial) 1.16 mmol/L (1.12-1.30); Carboxyhemoglobin (COHb) 5.2 gm% (0.0-3.0); Hemoglobin (Hb) 15.4 g/dL (12.0-16.0); Potassium - ABG Lab 4.62 mmol/L (3.70-5.30)
[2020-07-20 20:56] LABS: CO2 Tension 124.5 mmHg (35.0-45.0); pH, Arterial 7.14 (7.35-7.45)
[2020-07-20 20:57] LABS: ALV-art Gradient 498.175 (0-20); O2 Tension (PaO2), arterial 59.2 mmHg (> 80.0); Puncture Site RRA
[2020-07-20] MEDS ORDERED: Vancomycin 1 GM/200 ML BAG ONE (21:27)
[2020-07-20 21:49] LABS: Troponin I 0.029 ng/mL (< 0.028)
[2020-07-20 21:59] LABS: SARS-CoV-2 NAA Rapid Test Not Detected (NotDetected)
[2020-07-20] MEDS ORDERED: Enoxaparin Sodium 100 MG/ML SYRINGE ONE (22:05)
[2020-07-20] MEDS ORDERED: Labetalol HCl 100 MG/20 ML VIAL SLOW IVP PRN (22:29)
[2020-07-20] MEDS ORDERED: Guaifenesin DM 100-10/5 ML UDCUP PO PRN (22:29)
[2020-07-20] MEDS ORDERED: hydrALAZINE 20 MG/ML VIAL SLOW IVP PRN (22:29)
[2020-07-20] MEDS ORDERED: Ondansetron PF 4 MG/2 ML Vial IVP PRN (22:29)
[2020-07-20] MEDS ORDERED: Acetaminophen 325 MG TAB PO PRN (22:29)
[2020-07-20] MEDS ORDERED: Morphine 2 MG/ML VIAL SLOW IVP PRN (22:29)
[2020-07-20] MEDS ORDERED: HYDROcodone/Acetaminophen 5/325 mg Tablet PO PRN (22:29)
[2020-07-20] MEDS ORDERED: cloNIDine 0.1 MG TAB PO PRN (22:29)
[2020-07-20] MEDS ORDERED: Promethazine HCl 12.5 MG in Sodium Chloride 0.9% 50 ML IVPB PRN (22:29)
[2020-07-20] MEDS ORDERED: Electrolyte Replacement Protoc 1 EACH EACH FS SCH (22:30)
[2020-07-20] MEDS ORDERED: Mag-Al 1200 mg/1200 mg/30 ML UDCUP PO PRN (22:33)
[2020-07-20] MEDS ORDERED: HumaLOG 300 UNITS/3 ML VIAL SC PRN (22:33)
[2020-07-20] MEDS ORDERED: Milk Of Magnesia 30 ML UDCUP PO PRN (22:33)
[2020-07-20] MEDS ORDERED: Bisacodyl 5 MG TAB PO PRN (22:33)
--- NOTE | 2020-07-20 22:39 | PDOC.HHP ---
Hospitalist HPI - History of Present Illness Chest pain History of Present Illness: Patient is a 69 year old female with PMH diastolic CHF, COPD, asthma who presents to ED for chest pain. Patient developed chest pain at home, assocaited with SOB, orthopnea, dyspnea on exertion. EMS brought here, on route noted to be in atrial flutter w/ RVR, started on cardizem drip 5/hr. Here in ED, rhythm noted on arrival to be 170s atrial flutter, patient with low BP and unstable so given DCCV and converted to sinus rhythm and then atrial fibrillation w/ rate 70 -80s and BP improved. Patient was hypoxic on NC (patient wears 4L o2 by NC at home), required NRB then BIPAP to maintain sats above 89%. CXR w R pleural effusion and overall CXR reported as suspicious for CHF. Last echo in system 2018, revealed preserved EF and mild/moderate mitral and tricuspid regurgitation. Patient reported to ED no known history of afib or aflutter. In ED, ABG significant for repsiratory acidosis w/ CO2 124, pH 7.14. Na 127, K 5.5. COVID screen negative. Pateint to be admitted to IMCU for rescue BIPAP for hypoxic/hypercapneic respiratory failure Hospitalist ROS - Review of Systems ROS unobtainable: due to mental status (BIPAP, altered mental status, awake and alert but not able to help with ROS significantly since desaturates rapidly if bipap removed to talk) All other systems reviewed; all pertinent +/- noted in HPI/Subj - Medication Medications: reviewed, see ED and admission documents for list Hospitalist History - Past Medical History Other Medical History: diastolic CHF, COPD, asthma - Past Surgical History Other Surgical History: knee arthroscopy spinal surgery/laminectomy tubal ligation - Family History Family History: reports: Other Other Family History: sisters x 3 passed from aneurysms. - Social History Tobacco Type: cigarettes Alcohol: reports: Occassional Drugs: reports: none - Exam General Appearance: NAD, awake alert General - other findings: on BIPAP, awake and alert Eye: PERRL, anicteric sclera ENT: normocephalic atraumatic, no oropharyngeal lesions, moist mucosa Neck: supple, symmetric, no JVD, no thyromegaly, no lymphadenopathy, no carotid bruit Heart: RRR, no murmur, no gallops, no rubs, normal peripheral pulses Respiratory: CTAB, no rales, no ronchi, normal chest expansion, no tachypnea, normal percussion Respiratory - other findings: crackles bibasilar Gastrointestinal: soft, non-tender, non-distended, normal bowel sounds, no palpable masses, no hepatomegaly, no splenomegaly, no bruit Extremities: no cyanosis, no clubbing, no edema Skin: normal turgor, no lesions, no rashes Neurological: cranial nerve grossly intact, normal sensation to touch, no weakness, no focal deficits, no new deficit Neurological - other findings: exam limited by bipap and immediate desaturation on removal of mask Musculoskeletal: normal tone, normal strength, no muscle wasting Psychiatric - other findings: unable to evaluate Hospitalist Results - Labs Result Diagrams: 07/20/20 18:30 07/20/20 18: Lab results: WBC 7.6 thou/uL (4.8-10.8) 07/20/20 18: Hgb 14.9 g/dL (12.0-16.0) 07/20/20 18: Hct 49.7 % (36.0-47.0) H 07/20/20 18:30 MCV 83.6 fL (78.0-98.0) 07/20/20 18: Plt Count 173 thou/uL (130-400) 07/20/20 18: Neutrophils % 65.8 % (42.0-75.0) 07/20/20 18: ABG pH 7.14 (7.35-7.45) L* 07/20/20 20:17 ABG pCO2 124.5 mmHg (35.0-45.0) H* 07/20/20 20:17 ABG pO2 59.2 mmHg (> 80.0) L* 07/20/20 20:17 Sodium 127 mmol/L (136-145) L 07/20/20 18:30 Potassium 5.5 mmol/L (3.5-5.1) H 07/20/20 18:30 Chloride 87 mmol/L (98-107) L 07/20/20 18:30 Carbon Dioxide 33 mmol/L (23-31) H 07/20/20 18:30 BUN 14 mg/dL (9.8-20.1) 07/20/20 18:30 Creatinine 0.64 mg/dL (0.6-1.1) 07/20/20 18:30 Glucose 108 mg/dL (80-115) 07/20/20 18:30 Lactic Acid 0.8 mmol/L (0.5-2.2) 07/20/20 19:34 Calcium 8.5 mg/dL (7.8-10.44) 07/20/20 18:30 Total Bilirubin 0.6 mg/dL (0.2-1.2) 07/20/20 18:30 AST 22 U/L (5-34) 07/20/20 18:30 ALT 21 U/L (8-55) 07/20/20 18:30 Alkaline Phosphatase 93 U/L (40-110) 07/20/20 18:30 Creatine Kinase 94 U/L (29-168) 07/20/20 18:30 CK-MB (CK-2) 4.2 ng/mL (0-6.6) 07/20/20 18:30 Troponin I 0.029 ng/mL (< 0.028) H 07/20/20 21:07 B-Natriuretic Peptide 244.1 pg/mL (0-100) H 07/20/20 18:30 Serum Total Protein 6.5 g/dL (6.0-8.3) 07/20/20 18:30 Albumin 3.7 g/dL (3.4-4.8) 07/20/20 18:30 Lipase 23 U/L (8-78) 07/20/20 18:30 Additional comment: BP: 137/78, MAP: 97, Pulse: 90, Resp: 19, Pain: 0, O2 sat: 91 on (Non Rebreather ), Time: 07/20/2020 20:17. VITAL SIGNS [facility] Jul 20, 2020 20:23 MOE Ibrahim Sarah BP: 116/62, MAP: 80, Pulse: 86, Resp: 20, Pain: 0, O2 sat: 92 on (Non Rebreather ), Time: 07/20/2020 20:23. VITAL SIGNS [facility] Jul 20, 2020 21:00 MOE Ibrahim Sarah BP: 136/76, MAP: 96, Pulse: 90, Resp: 20, Pain: 0, O2 sat: 89 on (Bipap), Time: 07/20/2020 21:00. VITAL SIGNS Sarah Jul 20, 2020 22:01 MOE Wheatley Robby BP: 114/69, MAP: 84, Pulse: 84, Resp: 15, O2 sat: 92 on (Bipap), Time: 2019 22:01. all imaging, lab reports, ED documents, EKGs from this admission reviewed. Hospitalist H&P A/P - Plan Plan: Patient is a 69 year old female with PMH diastolic CHF, COPD, asthma who presents to ED for chest pain. # atrial fibrillation/flutter # acute and chronic diastolic CHF # elevated troponin # acute hypoxic and hypercapneic respiratory failure # abnormal chest imaging - atalectasis, LLL pneumonia, mediastinal/hilar lymphadenopathy on CTA chest # COPD and asthma w/ suspected exacerbation EMS called for chest pain, found patient in atrial flutter w/ RVR, started on cardizem drip however rate went to 170s and BP unstable, DCCV performed and patient now in afib rate controlled, patient is chronically hypoxic on 4L by NC at home, however here she was desaturating on NC and NRB, improved finally with BIPAP. CXR w R pleural effusion suspicious for CHF. Last echo in system 04/2019, revealed preserved EF and mild/moderate mitral and tricuspid regurgitation. - admit to IMCU, continue BIPAP, recheck lactic/BMP/ABG now, - consult cardiology, pulmonary - IV steroids/levaquin ordered, scheduled/PRN nebs, continue home dulera - CTA chest concerning for several things, including possible bronchial mass and LLL pneumonia, R pleural effusion. - patient required DCCV in ED, continue lovenox DVT dosing - lasix IV, ASA - echo # hyponatremia # hyperkalemia - bladder scan to help rule out obstruction - trend BMP - diuresis as above DVT/GI ppx 62 minutes critical care time
[2020-07-20] MEDS ORDERED: Bacteriostatic Water 30 ML VIAL FS PRN (22:54)
[2020-07-20] MEDS ORDERED: Electrolyte Replacement Protocol FS PRN (23:00)
--- NOTE | 2020-07-20 23:06 | CT ---
CT ANGIOGRAM THORAX WITH CONTRAST: (CTA pulmonary angiogram) DATE: 07/20/2020 HISTORY: 69-year-old female with chest pain and dyspnea TECHNIQUE: IV injection of iodinated contrast. Scan acquisition timing attempted to coincide with iodinated contrast bolus reaching maximal density in pulmonary arteries. 3-D MIP reconstructions. FINDINGS: No pulmonary thromboembolism. Atherosclerotic calcification, without aneurysm, dissection, or rupture, of thoracic aorta. Occlusion of right lower lobe bronchus. Severe narrowing or occlusion of right bronchus intermedius and right middle lobe bronchus. Consolidation of majority of volume of right lower lobe, probably severe or atelectasis. Significant atelectasis of right middle lobe. Large consolidation involving superior and basilar portions of left lower lobe broadly abutting poste rior pleural surface. Groundglass haziness in the portions of the left upper lobe anterior to this. The left lower lobe con solidation is contiguous with posterior aspect of left hilum. Small to moderate size right pleural effusion. Tiny left pleural effusion. Pericardial effusion. Cardiomegaly with four-chamber dilation. No pneumothorax. Fluid in superior pericardial recess. Noncalcified moderately enlarged multiple mediastinal lymph nodes, including subcarinal. Bilateral hi lar lymphadenopathy. Centrilobular emphysematous changes in the aerated portions of the lungs. IMPRESSION: 1) right lower lobe bronchial occlusion. This raises the possibility of malignant bronchial lesion. 2) Right bronchus intermedius and right middle lobe bronchial occlusion or severe stenosis. 3) severe atelectasis of right lower lobe and moderate atelectasis of right middle lobe. 4) moderately large consolidation in left lower lobe broadly abutting posterior pleural surface. 5) right pleural effusion. 6) cardiomegaly. 7) pericardial effusion. 8) no pulmonary thromboembolism. 9) nonspecific mild to moderate mediastinal and hilar lymphadenopathy.
[2020-07-20 23:33] LABS: Anion Gap 12 mmol/L (10-20); BUN (Urea Nitrogen) 13 mg/dL (9.8-20.1); Calc. Creatinine Clearance 123 mL/min (70-130); Calcium 7.7 mg/dL (7.8-10.44); Carbon Dioxide 29 mmol/L (23-31); Chloride 89 mmol/L (98-107); Estimated GFR-MDRD Greater than 90; Glucose 127 mg/dL (80-115); Potassium 5.1 mmol/L (3.5-5.1); Sodium 125 mmol/L (136-145)
[2020-07-21 01:47] LABS: Troponin I 0.043 ng/mL (< 0.028)
[2020-07-21] MEDS: methylPREDNISolone Sod Succ/PF 125 MG/2 ML VIAL IVP SCH ×3 (02:06→17:52)
[2020-07-21 04:07] LABS: #Basophils 0.1 thou/uL (0.0-0.2); #Lymphocytes 0.6 thou/uL (1.20-3.40); #Monocytes 0.1 thou/uL (0.11-0.59); #Neutrophils 6.3 thou/uL (1.40-6.50); %Basophils 1.1 % (0.0-1.0); %Eosinophils 0.1 % (0.0-10.0); %Monocytes 0.7 % (0.0-10.0); %Neutrophils 90.1 % (42.0-75.0); Anion Gap 13 mmol/L (10-20); BUN (Urea Nitrogen) 14 mg/dL (9.8-20.1); Calc. Creatinine Clearance 119 mL/min (70-130); Calcium 7.9 mg/dL (7.8-10.44); Carbon Dioxide 34 mmol/L (23-31); Chloride 88 mmol/L (98-107); Estimated GFR-MDRD Greater than 90; Glucose 115 mg/dL (80-115); Hemoglobin 14.2 g/dL (12.0-16.0); Mean Corpuscular HGB CONC 29.9 g/dL (32.0-36.0); Mean Corpuscular Hemoglobin 25.5 pg (27.0-31.0); Mean Corpuscular Volume 85.1 fL (78.0-98.0); Mean Platelet Volume 11.2 fL (7.4-10.4); Platelet Count 171 thou/uL (130-400); Potassium 5.7 mmol/L (3.5-5.1); RBC Distribution Width 17.1 % (11.5-14.5); Red Blood Cell (RBC) Count 5.58 mill/uL (4.20-5.40); Sodium 129 mmol/L (136-145)
[2020-07-21 04:12] LABS: Troponin I 0.034 ng/mL (< 0.028)
[2020-07-21] MEDS ORDERED: Magnesium 2 GM/50 ML 2 GM in Premix Bag 1 BAG IVPB SCH ×2 (05:00→05:30)
[2020-07-21] MEDS: Mometasone 200 MCG/Formoterol 5 MCG 120 PUFF INHALER INH SCH ×2 (07:22→18:39)
[2020-07-21] MEDS: Aspirin 81 mg Enteric Coated Tablet PO SCH (08:38)
[2020-07-21] MEDS ORDERED: Famotidine 20 MG TAB PO SCH (09:00)
[2020-07-21] MEDS ORDERED: Enoxaparin Sodium 100 MG/ML SYRINGE SC SCH (09:00)
[2020-07-21] MEDS: Furosemide 40 MG/4 ML VIAL SLOW IVP SCH (10:00)
--- NOTE | 2020-07-21 10:06 | PDOC.HOSPP ---
- Subjective Encounter Date: 07/21/20 Encounter Time: 08:20 Subjective: Patient reports improvement with breathing. Remains on BiPap. Denies chest pain, abdominal pain, or difficulty urinating. - Objective Vital Signs & Weight: Vital Signs (12 hours) Temp Pulse Resp Pulse Ox 07/21/20 08:00 90 L 07/21/20 07:36 97.5 F L 07/21/20 07:23 92 20 93 L 07/21/20 07:22 91 20 07/21/20 04:00 87 L 07/21/20 03:35 97.2 F L 07/21/20 00:14 74 16 93 L 07/20/20 23:47 97.0 F L 07/20/20 23:25 91 26 H 89 L 07/20/20 23:20 102 H 24 H 92 L 07/20/20 23:00 91 L 07/20/20 22:58 97.5 F L Weight Weight 199 lb 9.6 oz Most Recent Monitor Data Heart Rate from ECG 83 NIBP 119/76 NIBP BP-Mean 90 Respiration from ECG 22 SpO2 93 I&O: 07/20/20 07/21/20 07/22/20 06:59 06:59 06:59 Intake Total 0 Output Total 900 550 Balance -900 -550 Result Diagrams: 07/21/20 03:14 07/21/20 11:56 Additional Labs: Accuchecks 07/21/20 07/21/20 05:00 01:04 POC Glucose 121 H 125 H Hospitalist ROS - Review of Systems Constitutional: denies: fever, chills Respiratory: denies: cough, shortness of breath Cardiovascular: denies: chest pain, palpitations, edema Gastrointestinal: denies: nausea, vomiting, abdominal pain Genitourinary: denies: dysuria Musculoskeletal: reports: shoulder pain (chronic left shoulder) Skin: denies: rash Neurological: denies: weakness - Medication Medications: Active Medications Generic Name Dose Route Start Last Admin Trade Name Freq PRN Reason Stop Dose Admin Albuterol/Ipratropium 3 ml 07/21/20 01:00 07/21/20 07:22 Duoneb NEB 3 ml [id number] RAMON Administration Aspirin 81 mg 07/21/20 09:00 07/21/20 08:38 Ecotrin PO Not Given DAILY RAMON Furosemide 40 mg 07/21/20 09:00 07/21/20 10:00 Lasix SLOW IVP 40 mg DAILY RAMON Administration Methylprednisolone Sodium Succinate 60 mg 07/21/20 02:00 07/21/20 10:00 Solu-Medrol IVP 60 mg 0200,1000,1800 RAMON Administration Mometasone Furoate/Formoterol Fumar 2 puff 07/21/20 06:30 07/21/20 07:22 Dulera 200 Mcg/5 Mcg Inhaler INH 2 puff BID-RT RAMON Administration Pantoprazole Sodium 40 mg 07/21/20 09:00 07/21/20 08:39 Protonix PO Not Given DAILY RAMON - Exam General Appearance: awake alert General - other findings: on Bipap, tolerating well Eye: PERRL ENT: normocephalic atraumatic Neck: no JVD Heart: RRR, no murmur Respiratory: no rales, normal chest expansion Respiratory - other findings: bibasilar crackles Gastrointestinal: soft, non-tender, non-distended Extremities: no cyanosis, no edema Neurological: cranial nerve grossly intact Psychiatric: normal affect, normal behavior, A&O x 3 Hosp A/P (1) Acute and chronic respiratory failure with hypoxia Code(s): J96.21 - ACUTE AND CHRONIC RESPIRATORY FAILURE WITH HYPOXIA Status: Acute (2) Obesity (BMI 30.0-34.9) Code(s): E66.9 - OBESITY, UNSPECIFIED Status: Chronic (3) Tobacco abuse Code(s): Z72.0 - TOBACCO USE Status: Chronic (4) Acute on chronic respiratory failure with hypoxia and hypercapnia Code(s): J96.21 - ACUTE AND CHRONIC RESPIRATORY FAILURE WITH HYPOXIA; J96.22 - ACUTE AND CHRONIC RESPIRATORY FAILURE WITH HYPERCAPNIA Status: Resolved (5) COPD exacerbation Code(s): J44.1 - CHRONIC OBSTRUCTIVE PULMONARY DISEASE W (ACUTE) EXACERBATION Status: Resolved - Plan Plan: 69 year old female PMH diastolic CHF, COPD, asthma who presents to ED for chest pain. Found to be in atrial flutter w/RVR, started on cardizem gtt but become unstable with HR in 170s and BP low. DCCV performed in ED and remains rate controlled. Uses 4L by NC at home. Placed on BIPAP due to desaturaing. CXR revealed right pleural effusion suspicious for CHF. Last echo 04/2019- preserved EF, mild/moderate mitral and tricuspid regurgitation. Admitted to IMCU for respiratory support # atrial fibrillation/flutter # acute and chronic diastolic CHF # elevated troponin # acute hypoxic and hypercapneic respiratory failure # abnormal chest imaging - atalectasis, LLL pneumonia, mediastinal/hilar lymphadenopathy on CTA chest # COPD and asthma w/ suspected exacerbation # hyponatremia # hyperkalemia - cardiology and pulm consulted - started on IV steroids/levaquin and scheduled/PRN nebs, continue home dulera - CTA chest concerning for several things, including possible bronchial mass and LLL pneumonia, R pleural effusion. - patient required DCCV in ED, continue lovenox DVT dosing - requiring BIPAP this morning - lasix IV, ASA - follow-up echo - bladder scan to help rule out obstruction - trend BMP
--- NOTE | 2020-07-21 10:19 | CON ---
DATE OF CONSULTATION: 07/21/2020 REASON FOR CONSULTATION: Atrial flutter. HISTORY OF PRESENT ILLNESS: Ms. Orellana is a 69-year-old woman with history of COPD and sleep apnea, came to the hospital last night with shortness of breath and chest pain, found to be in atrial flutter with a rapid ventricular response. She tolerated it poorly and was cardioverted. She has been in sinus rhythm with PACs since then. Now, she is in sinus rhythm. No previous cardiac history. Positive history of COPD. Positive history of sleep apnea. MEDICATIONS: 1. Aspirin. 2. Lyrica. 3. Lasix. ALLERGIES: PENICILLIN, CODEINE, AND TRAMADOL. REVIEW OF SYSTEMS: CONSTITUTIONAL: No significant weight gain or loss. VISION: No changes. HEARING: No changes. PULMONARY: No shortness of breath. CARDIAC: As outlined above. GASTROINTESTINAL: No nausea, vomiting, or diarrhea. PHYSICAL EXAMINATION: GENERAL: This is a 5-foot 5-inch tall, 199-pound patient, currently with a CPAP. VITAL SIGNS: Blood pressure 119/76, pulse is 90. LUNGS: Clear. CARDIAC: Normal S1. Normal S2. ABDOMEN: Obese, nontender. EXTREMITIES: No edema. DIAGNOSTIC STUDIES: Echocardiogram done in April 2019 showed normal left ventricular function. Technically difficult study due to lung disease. ASSESSMENT: 1. Atrial flutter. 2. Chronic obstructive pulmonary disease. PLAN: Consult Electrophysiology to see if an ablation may be appropriate. Job ID: [id number]
[2020-07-21 12:14] VITALS: BMI 33.2
[2020-07-21 12:36] LABS: Anion Gap 13 mmol/L (10-20); BUN (Urea Nitrogen) 15 mg/dL (9.8-20.1); Calc. Creatinine Clearance 108 mL/min (70-130); Calcium 8.2 mg/dL (7.8-10.44); Carbon Dioxide 34 mmol/L (23-31); Chloride 88 mmol/L (98-107); Estimated GFR-MDRD 82; Glucose 103 mg/dL (80-115); Potassium 5.9 mmol/L (3.5-5.1); Sodium 129 mmol/L (136-145)
--- NOTE | 2020-07-21 19:57 | CON ---
DATE OF CONSULTATION: 07/21/2020 A 75 minutes of time, of that time, greater than 50% spent with the patient and/or the patient's unit in the hospital. REASON FOR CONSULTATION: COPD exacerbation. HISTORY OF PRESENT ILLNESS: The patient is a 69-year-old female, who presents to the hospital with shortness of breath, chest congestion, and apparent atrial flutter. She lives in [place] and sees Dr. Montoya for her care. She has seen Dr. Griffin in the hospital in the past, but does not see him in the office. She was put on BiPAP last night after presenting with acute hypercapnic respiratory failure. PAST MEDICAL HISTORY: 1. COPD - severe. 2. Continue tobacco abuse - almost two packs per day. 3. Diastolic heart failure. 4. Morbid obesity. 5. Hyperlipidemia. PAST SURGICAL HISTORY: 1. Knee arthroscopy. 2. Spinal surgery. 3. Laminectomy. 4. Tubal ligation. FAMILY MEDICAL HISTORY: Unremarkable except for cerebral aneurysm. SOCIAL HISTORY: She has smoked up to three packs per day during most of her adult life, but has cut back to about 2 packs per day. She drinks at least four large cans of beer per day. Does not use any illicit drugs. REVIEW OF SYSTEMS: No fever or chills, but has had chest congestion and copious sputum production. No nausea, vomiting, hematemesis, melena, hematochezia, hematuria, or dysuria. PHYSICAL EXAMINATION: VITAL SIGNS: Temperature 98.6, pulse 86, blood pressure 117/67, and O2 saturation 93%. GENERAL: She is a morbidly obese female, with BMI 33.2 and height 5 feet 5 inches. HEENT: She has periorbital edema beneath her eyes probably from BiPAP mask. She has poor dentition. NECK: No adenopathy or JVD. LUNGS: Distant, but clear breath sounds. CARDIAC: S1 and S2. Regular. ABDOMEN: Obese, soft, and nontender. EXTREMITIES: 1+ edema from the knees downward. LABORATORY DATA: Sodium 129, potassium 5.9, chloride 88, CO2 of 34, BUN 15, creatinine 0.7, and glucose 103. A pH of 7.14, pCO2 of 124, and pO2 of 59, that was taken last night at 2017 hours. White blood cell count 7, hematocrit 47.5, and platelet count 171. COVID test was negative. A chest x-ray demonstrates cardiomegaly with slight blunting of the right costophrenic angle. It is hard to see the bottom of the left lung. CT of the chest demonstrates right lower lobe bronchus occlusion, which may be mucus versus endobronchial tumor. She has atelectasis of the right lower lobe with moderate consolidation left lower lobe. Small pericardial effusion. ASSESSMENT: 1. Chronic obstructive pulmonary disease exacerbation. 2. Mucus plugging versus endobronchial tumor. 3. Atrial flutter. 4. Possible obesity hypoventilation syndrome. PLAN: 1. Continue treatment with nebulization treatments, steroids, and antibiotics and we will continue BiPAP. 2. If worsens, consider endotracheal intubation. 3. At some point in the future, she will probably need bronchoscopy, but that is not a pressing need. 4. At some point, she probably will need a cardiac ablation, although now it appears she is back in a sinus rhythm. Thank you for the referral. We will follow with you. I will notify Dr. Griffin of the patient's hospitalization. Job ID: [id number]
[2020-07-21] MEDS ORDERED: Enoxaparin Sodium 40 MG/0.4 ML SYRINGE SC SCH (21:00)
--- NOTE | 2020-07-21 21:18 | CON ---
DATE OF CONSULTATION: 07/21/2020 HISTORY: I am seeing Mrs. Orellana at our [facility] ICU/IMCU for Electrophysiology consultation for the following problems: 1. Newly found atrial flutter with rapid ventricular rates requiring emergent cardioversion on admission, 07/20/2020. 2. Acute on chronic obstructive pulmonary disease exacerbation requiring BiPAP with altered mental status. 3. diastolic heart failure. 4. Preserved LVEF by 2D echo from 04/10/2019. Lzie-pf-gofkbsox MR, mild-to- moderate TR, and elevated pulmonary pressures of approximately 52. ALLERGIES: BEE VENOM PROTEIN, CODEINE, PENICILLINS, AND TRAMADOL. MEDICATIONS AT HOME: Included Zocor, diclofenac, K-Dur, aspirin, Kenalog, pregabalin, furosemide, DuoNeb, Dulera, NicoDerm CQ. SUBJECTIVE: Mrs. Orellana is on BiPAP, still gives me full history, most of the history obtained from the chart and the nurses. This lady presented with worsening dyspnea. Denies palpitations. Did not pass out. No stroke-like symptoms. Denies angina-like discomfort. No fevers or chills. Chronic cough is noted. She is using inhalers at home. In the ER, she was noted to be in atrial flutter and due to marked respiratory distress, trying to receive emergent cardioversion. She remained in sinus rhythm subsequently. Chest x-ray was suspicious for CHF or pneumonia and chronic COPD. She was still markedly hypoxic and hypercapnic. She also noted to have hyponatremia and hyperkalemia; all being addressed now. REVIEW OF SYSTEMS: Rest of 12-point system otherwise unremarkable. PAST MEDICAL HISTORY: As above. SOCIAL HISTORY: The patient is a smoker. Denies EtOH or drug abuse. FAMILY HISTORY: Noncontributory. OBJECTIVE DATA: VITAL SIGNS: Blood pressure is 104/51, heart rate 68, temperature is 98.9, respiratory rate is 12. GENERAL: Reveals an alert and oriented woman, in no apparent distress and on BiPAP. Some cyanosis is noted. NECK: Supple. Jugular veins difficult to visualize, somewhat elevated. CHEST: Coarse. No wheezing is heard. No ally crackles appreciated. HEART: Sounds are regular rate and rhythm. 1/6 holosystolic murmur heard at the left lower precordial area. PMI is nonpalpable. ABDOMEN: Benign. Bowel sounds positive. EXTREMITIES: Lower extremity with 1+ lower extremity edema. NEUROLOGIC: The patient is nonfocal. MUSCULOSKELETAL: Without joint swelling, deformities. SKIN: Without rash. DATABASE: EKG is reviewed. Initial EKG reveals a typical-appearing atrial flutter with ventricular rates of 142 beats per minute. Subsequent EKGs reveal sinus rhythm, short PAT run only. White count is 7.0, hemoglobin 14.2, platelet count is 171. Sodium 129, potassium 5.9, BUN is 15, and creatinine 0.71. Blood gas from 07/20 with a pH of 7.14, pCO2 of 124, PO2 of 59.2. COVID serology is negative. ASSESSMENT/PLAN: Mrs. Orellana is a pleasant 69-year-old woman with history of advanced chronic obstructive pulmonary disease, chronic smoking, who is presenting with marked hypoxia, respiratory distress. BNP slightly elevated, markedly elevated CO2 is noted suspicious of acute on chronic COPD exacerbation, possible fluid overload cannot be ruled out. She has history of preserved LV function in the past. Also EKG was showing typical atrial flutter, which required emergent cardioversion due to her acute respiratory distress. Symptoms stabilized with treatment as above. She is still being evaluated and optimized from a pulmonary status. I discussed the etiology of her atrial flutter, the treatment options of rate control versus antiarrhythmic agents or ablation was discussed. At this point, I would recommend continued anticoagulation. Consider radiofrequency ablation in this severely diseased lady. Hence, relatively simple cavotricuspid isthmus could eliminate further flutter episodes. It likely will be difficult to control in case of recurrences. Naturally, she is higher than usual anesthesia risk. Overall, still feel it is reasonable to proceed once she is stabilized from a Pulmonary standpoint as inpatient or outpatient. On the other hand, she is likely a poor candidate for left atrial ablation procedures. COPD exacerbation as per primary team. Further pulmonary evaluation in progress. Smoking cessation strongly advised. Job ID: [id number] [facility]
[2020-07-21] MEDS ORDERED: Melatonin 3 MG TAB PO SCH (23:30)
[2020-07-22] MEDS: methylPREDNISolone Sod Succ/PF 125 MG/2 ML VIAL IVP SCH ×2 (02:20→08:09)
[2020-07-22 03:41] LABS: #Lymphocytes 0.8 thou/uL (1.20-3.40); #Monocytes 0.3 thou/uL (0.11-0.59); #Neutrophils 4.1 thou/uL (1.40-6.50); %Basophils 0.9 % (0.0-1.0); %Eosinophils 0.2 % (0.0-10.0); %Lymphocytes 15.6 % (21.0-51.0); %Monocytes 5.7 % (0.0-10.0); %Neutrophils 77.7 % (42.0-75.0); Hemoglobin 12.6 g/dL (12.0-16.0); Mean Corpuscular HGB CONC 30.2 g/dL (32.0-36.0); Mean Corpuscular Hemoglobin 25.1 pg (27.0-31.0); Mean Platelet Volume 10.6 fL (7.4-10.4); Platelet Count 171 thou/uL (130-400); RBC Distribution Width 17.1 % (11.5-14.5); Red Blood Cell (RBC) Count 5.03 mill/uL (4.20-5.40); White Blood Cell (WBC) Count 5.3 thou/uL (4.8-10.8)
[2020-07-22 04:02] LABS: Anion Gap 12 mmol/L (10-20); BUN (Urea Nitrogen) 20 mg/dL (9.8-20.1); Calc. Creatinine Clearance 107 mL/min (70-130); Calcium 8.4 mg/dL (7.8-10.44); Carbon Dioxide 34 mmol/L (23-31); Chloride 86 mmol/L (98-107); Estimated GFR-MDRD 81; Glucose 128 mg/dL (80-115); Magnesium 2.2 mg/dL (1.6-2.6); Potassium 5.4 mmol/L (3.5-5.1); Sodium 127 mmol/L (136-145)
[2020-07-22] MEDS: Mometasone 200 MCG/Formoterol 5 MCG 120 PUFF INHALER INH SCH ×2 (05:07→18:19)
[2020-07-22] MEDS: Aspirin 81 mg Enteric Coated Tablet PO SCH (08:09)
[2020-07-22] MEDS: Furosemide 40 MG/4 ML VIAL SLOW IVP SCH (08:09)
[2020-07-22] MEDS ORDERED: Enoxaparin Sodium 80 MG/0.8 ML SYRINGE SC SCH (09:30)
--- NOTE | 2020-07-22 09:35 | PRG ---
DATE OF SERVICE: 07/22/2020 SUBJECTIVE: Ms. Orellana looks much better today. She is sitting up just on a nasal cannula, breathing well. No complaints. OBJECTIVE: VITAL SIGNS: Blood pressure 130/80, pulse in the 80s, it is sinus. LUNGS: Clear. CARDIAC: Normal S1, normal S2. ASSESSMENT: 1. Atrial flutter, currently in sinus rhythm. 2. Chronic obstructive pulmonary disease. 3. Diastolic heart failure, appears to be improved. PLAN: 1. Continue diuretics for now. 2. Hopefully, can undergo ablation on Friday. 3. We will resume enoxaparin this morning, stop this Friday night. Job ID: [id number]
--- NOTE | 2020-07-22 11:37 | PRG ---
DATE OF SERVICE: 07/22/2020 SUBJECTIVE: The patient is feeling better. She refused her BiPAP last night. She says she is back at her baseline. OBJECTIVE: VITAL SIGNS: Temperature 98.4, pulse 91, blood pressure 117/62, O2 saturation 92%. HEENT: Unremarkable. NECK: No JVD. LUNGS: Soft, end-expiratory wheezing. CARDIAC: S1, S2. Regular. ABDOMEN: Soft. EXTREMITIES: No edema. LABORATORY DATA: White blood cell count 5.3, hematocrit 41.8, and platelet count 171. Sodium 127, potassium 5.4, chloride 86, CO2 of 34, BUN 20, creatinine 0.7, and glucose 128. ASSESSMENT: 1. Chronic obstructive pulmonary disease with exacerbation. 2. Atrial flutter. 3. Obesity hypoventilation syndrome, plus-minus obstructive sleep apnea. PLAN: Ablation expected on Friday. Needs to remain on telemetry monitoring till then, but can move out to the telemetry unit. I have suggested BiPAP at night, but it does not look the patient will comply. She will be a continued risk for atrial arrhythmias, if she does not have her sleep apnea treated. Job ID: [id number]
[2020-07-22] MEDS ORDERED: Pregabalin 75 MG CAP PO SCH ×3 (12:00→21:00)
[2020-07-22 15:33] LABS: Anion Gap 13 mmol/L (10-20); BUN (Urea Nitrogen) 18 mg/dL (9.8-20.1); Calc. Creatinine Clearance 104 mL/min (70-130); Calcium 8.5 mg/dL (7.8-10.44); Carbon Dioxide 33 mmol/L (23-31); Chloride 86 mmol/L (98-107); Estimated GFR-MDRD 79; Glucose 117 mg/dL (80-115); Potassium 4.8 mmol/L (3.5-5.1); Sodium 127 mmol/L (136-145)
[2020-07-22] MEDS ORDERED: diphenhydrAMINE 30 GM TUBE TOP PRN (17:42)
[2020-07-22] MEDS: guaiFENesin ER 600 MG TAB PO SCH (20:26)
[2020-07-22] MEDS: Enoxaparin Sodium 80 MG/0.8 ML SYRINGE SC SCH (20:26)
[2020-07-22] MEDS: methylPREDNISolone Sod Succ 40 MG VIAL IVP SCH (20:27)
[2020-07-22] MEDS: Pregabalin 75 MG CAP PO SCH (20:27)
[2020-07-22] MEDS: Melatonin 3 MG TAB PO SCH (20:27)
[2020-07-22] MEDS: Polyethylene Glycol 3350 17 GM Packet PO SCH (20:28)
[2020-07-22] MEDS ORDERED: guaiFENesin ER 600 MG TAB PO SCH (21:00)
[2020-07-22] MEDS ORDERED: methylPREDNISolone Sod Succ/PF 125 MG/2 ML VIAL IVP SCH (21:00)
--- NOTE | 2020-07-22 23:03 | PDOC.HOSPP ---
- Subjective Encounter Date: 07/22/20 Encounter Time: 16:00 Subjective: Patient seen and examined for respiratory failure. Mentation improving. Cough with some production. No chest pain, palpitations or syncope reported. - Objective Vital Signs & Weight: Vital Signs (12 hours) Temp Pulse Resp Pulse Ox 07/22/20 21:45 93 18 96 07/22/20 20:00 96 07/22/20 19:09 98.8 F 07/22/20 18:18 86 16 96 07/22/20 15:33 98.6 F 07/22/20 14:41 85 18 93 L 07/22/20 11:58 99.0 F Weight Admit Weight 200 lb 11.2 oz Weight 197 lb 3.2 oz Most Recent Monitor Data Heart Rate from ECG 92 NIBP 149/80 NIBP BP-Mean 103 Respiration from ECG 25 SpO2 97 I&O: 07/21/20 07/22/20 07/23/20 06:59 06:59 06:59 Intake Total 0 1930 1240 Output Total 900 2150 1900 Balance -900 -220 -660 Result Diagrams: 07/22/20 03:10 07/22/20 15:02 Additional Labs: Accuchecks 07/22/20 07/22/20 06:13 00:09 POC Glucose 139 H 118 H EKG Reviewed by me: Yes (Sinus rhythm on telemetry) Hospitalist ROS - Review of Systems Cardiovascular: denies: chest pain, palpitations, orthopnea, paroxysmal noc. dyspnea, edema, light headedness, other Gastrointestinal: denies: nausea, vomiting, abdominal pain, diarrhea, constipation, melena, hematochezia, other - Medication Medications: Active Medications Generic Name Dose Route Start Last Admin Trade Name Freq PRN Reason Stop Dose Admin Acetaminophen 650 mg 07/20/20 22:29 07/22/20 08:08 Tylenol PO 650 mg Q4H PRN Administration Headache/Fever/Mild Pain (1-3) Albuterol/Ipratropium 3 ml 07/21/20 18:30 07/22/20 21:45 Duoneb NEB 3 ml [id number] RAMON Administration Aspirin 81 mg 07/21/20 09:00 07/22/20 08:09 Ecotrin PO 81 mg DAILY RAMON Administration Enoxaparin Sodium 80 mg 07/22/20 21:00 07/22/20 20:26 Lovenox SC 07/23/20 22:00 80 mg 0900,2100 RAMON Administration Furosemide 40 mg 07/21/20 09:00 07/22/20 08:09 Lasix SLOW IVP 40 mg DAILY RAMON Administration Guaifenesin 600 mg 07/22/20 21:00 07/22/20 20:26 Mucinex PO 600 mg Q12HR RAMON Administration Levofloxacin 750 mg/ Device 150 mls @ 100 mls/hr 07/21/20 20:00 07/22/20 20: 26 IVPB 150 mls 2000 RAMON Administration Melatonin 3 mg 07/22/20 21:00 07/22/20 20:27 Melatonin PO 3 mg HS RAMON Administration Methylprednisolone Sodium Succinate 20 mg 07/22/20 21:00 07/22/20 20:27 Solu-Medrol IVP 20 mg Q12HR RAMON Administration Mometasone Furoate/Formoterol Fumar 2 puff 07/21/20 06:30 07/22/20 18:19 Dulera 200 Mcg/5 Mcg Inhaler INH 2 puff BID-RT RAMON Administration Pantoprazole Sodium 40 mg 07/21/20 09:00 07/22/20 08:09 Protonix PO 40 mg DAILY RAMON Administration Polyethylene Glycol 17 gm 07/22/20 21:00 07/22/20 20:28 Miralax PO Not Given HS RAMON Pregabalin 150 mg 07/22/20 21:00 07/22/20 20:27 Lyrica PO 150 mg BID RAMON Administration Sodium Chloride 10 ml 07/21/20 21:00 07/22/20 20:28 Flush - Normal Saline IVF 10 ml Q12HR RAMON Administration - Exam General Appearance: ill appearing Neck: supple, no JVD Heart: RRR, no gallops Respiratory: rales, rhonchi, wheezes Gastrointestinal: soft, non-tender, non-distended Extremities: no cyanosis, no edema Neurological: no new deficit Hosp A/P (1) Acute on chronic respiratory failure with hypoxia and hypercapnia Code(s): J96.21 - ACUTE AND CHRONIC RESPIRATORY FAILURE WITH HYPOXIA; J96.22 - ACUTE AND CHRONIC RESPIRATORY FAILURE WITH HYPERCAPNIA Status: Acute (2) Acute on chronic diastolic heart failure Code(s): I50.33 - ACUTE ON CHRONIC DIASTOLIC (CONGESTIVE) HEART FAILURE Status : Acute (3) Atrial flutter with rapid ventricular response Code(s): I48.92 - UNSPECIFIED ATRIAL FLUTTER Status: Acute (4) COPD exacerbation Code(s): J44.1 - CHRONIC OBSTRUCTIVE PULMONARY DISEASE W (ACUTE) EXACERBATION Status: Acute (5) History of cardioversion Code(s): Z98.890 - OTHER SPECIFIED POSTPROCEDURAL STATES Status: Acute (6) Hyperkalemia Code(s): E87.5 - HYPERKALEMIA Status: Acute (7) Hyponatremia Code(s): E87.1 - HYPO-OSMOLALITY AND HYPONATREMIA Status: Acute (8) Toxic metabolic encephalopathy Code(s): G92 - TOXIC ENCEPHALOPATHY Status: Acute (9) Obesity (BMI 30.0-34.9) Code(s): E66.9 - OBESITY, UNSPECIFIED Status: Chronic (10) Tobacco abuse Code(s): Z72.0 - TOBACCO USE Status: Chronic (11) Obesity hypoventilation syndrome Code(s): E66.2 - MORBID (SEVERE) OBESITY WITH ALVEOLAR HYPOVENTILATION Status : Suspected (12) Obstructive sleep apnea Code(s): G47.33 - OBSTRUCTIVE SLEEP APNEA (ADULT) (PEDIATRIC) Status: Suspected - Plan 07/22 Continue IV steroids with Levaquin. Continue nebulizer treatments. Patient is on full dose Lovenox. Continue IV Lasix. Recheck labs later today in a.m. Resume Lyrica. Low potassium diet. A.m. labs. Continue other medications as above
[2020-07-23 04:25] LABS: Anion Gap 12 mmol/L (10-20); BUN (Urea Nitrogen) 14 mg/dL (9.8-20.1); Calc. Creatinine Clearance 121 mL/min (70-130); Calcium 7.8 mg/dL (7.8-10.44); Carbon Dioxide 32 mmol/L (23-31); Chloride 84 mmol/L (98-107); Estimated GFR-MDRD Greater than 90; Glucose 112 mg/dL (80-115); Magnesium 2.1 mg/dL (1.6-2.6); Potassium 5.3 mmol/L (3.5-5.1); Sodium 123 mmol/L (136-145)
[2020-07-23 04:57] LABS: Band 1 % (5-11); Hemoglobin 12.7 g/dL (12.0-16.0); Lymphocytes 12 % (21-51); MDiff Complete? YES; Mean Corpuscular HGB CONC 29.8 g/dL (32.0-36.0); Mean Corpuscular Hemoglobin 24.7 pg (27.0-31.0); Mean Corpuscular Volume 82.9 fL (78.0-98.0); Mean Platelet Volume 10.4 fL (7.4-10.4); Monocytes 9 % (0-10); Platelet Count 189 thou/uL (130-400); Red Blood Cell (RBC) Count 5.15 mill/uL (4.20-5.40); White Blood Cell (WBC) Count 5.2 thou/uL (4.8-10.8)
--- NOTE | 2020-07-23 05:47 | PDOC.EVN ---
Event Note - Event Note Event Note: called for low Na will hold lasix for today, will recheck lyes later on today
[2020-07-23] MEDS: Mometasone 200 MCG/Formoterol 5 MCG 120 PUFF INHALER INH SCH ×2 (06:57→18:23)
[2020-07-23] MEDS: Pregabalin 75 MG CAP PO SCH (08:24)
[2020-07-23] MEDS: Aspirin 81 mg Enteric Coated Tablet PO SCH (08:29)
[2020-07-23] MEDS: guaiFENesin ER 600 MG TAB PO SCH ×2 (08:29→21:27)
[2020-07-23] MEDS: Enoxaparin Sodium 80 MG/0.8 ML SYRINGE SC SCH ×2 (08:29→21:25)
[2020-07-23] MEDS: methylPREDNISolone Sod Succ 40 MG VIAL IVP SCH (08:30)
--- NOTE | 2020-07-23 10:17 | PDOC.HOSPP ---
- Subjective Encounter Date: 07/23/20 Encounter Time: 09:15 Subjective: Patient seen and examined for respiratory failure. Symptomatically feels much better. Sitting on the side of the bed. Some productive cough. Refused BiPAP last night. - Objective Vital Signs & Weight: Vital Signs (12 hours) Temp Pulse Resp Pulse Ox 07/23/20 07:08 98 07/23/20 07:06 98.1 F 07/23/20 06:55 79 24 H 94 L 07/23/20 03:27 98.2 F 07/23/20 02:57 88 20 93 L 07/22/20 23:29 97.5 F L Weight Admit Weight 200 lb 11.2 oz Weight 199 lb 14.4 oz Most Recent Monitor Data Heart Rate from ECG 85 NIBP 141/76 NIBP BP-Mean 97 Respiration from ECG 23 SpO2 92 I&O: 07/22/20 07/23/20 07/24/20 06:59 06:59 06:59 Intake Total 1930 1740 Output Total 2150 2250 Balance -220 -510 Result Diagrams: 07/23/20 03:25 07/23/20 03:25 Additional Labs: Accuchecks 07/23/20 05:59 POC Glucose 119 H EKG Reviewed by me: Yes ('s rhythm on telemetry) Hospitalist ROS - Review of Systems Respiratory: reports: cough, SOB with excertion, sputum, wheezing Cardiovascular: denies: chest pain, palpitations, orthopnea, paroxysmal noc. dyspnea, edema, light headedness, other Gastrointestinal: denies: nausea, vomiting, abdominal pain, diarrhea, constipation, melena, hematochezia, other - Medication Medications: Active Medications Generic Name Dose Route Start Last Admin Trade Name Freq PRN Reason Stop Dose Admin Acetaminophen 650 mg 07/20/20 22:29 07/22/20 08:08 Tylenol PO 650 mg Q4H PRN Administration Headache/Fever/Mild Pain (1-3) Albuterol/Ipratropium 3 ml 07/21/20 18:30 07/23/20 06:55 Duoneb NEB 3 ml [id number] RAMON Administration Aspirin 81 mg 07/21/20 09:00 07/23/20 08:29 Ecotrin PO 81 mg DAILY RAMON Administration Enoxaparin Sodium 80 mg 07/22/20 21:00 07/23/20 08:29 Lovenox SC 07/23/20 22:00 80 mg 0900,2100 RAMON Administration Furosemide 40 mg 07/21/20 09:00 07/22/20 08:09 Lasix SLOW IVP 40 mg DAILY RAMON Administration Guaifenesin 600 mg 07/22/20 21:00 07/23/20 08:29 Mucinex PO 600 mg Q12HR RAMON Administration Levofloxacin 750 mg/ Device 150 mls @ 100 mls/hr 07/21/20 20:00 07/22/20 20: 26 IVPB 150 mls 2000 RAMON Administration Melatonin 3 mg 07/22/20 21:00 07/22/20 20:27 Melatonin PO 3 mg HS RAMON Administration Methylprednisolone Sodium Succinate 20 mg 07/22/20 21:00 07/23/20 08:30 Solu-Medrol IVP 20 mg Q12HR RAMON Administration Mometasone Furoate/Formoterol Fumar 2 puff 07/21/20 06:30 07/23/20 06:57 Dulera 200 Mcg/5 Mcg Inhaler INH 2 puff BID-RT RAMON Administration Pantoprazole Sodium 40 mg 07/21/20 09:00 07/23/20 08:29 Protonix PO 40 mg DAILY RAMON Administration Polyethylene Glycol 17 gm 07/22/20 21:00 07/22/20 20:28 Miralax PO Not Given HS RAMON Sodium Chloride 10 ml 07/21/20 21:00 07/23/20 08:31 Flush - Normal Saline IVF 10 ml Q12HR RAMON Administration - Exam General Appearance: NAD Neck: supple, no JVD Heart: RRR, no gallops, no rubs, normal peripheral pulses Respiratory: rales, rhonchi, tachypneic, wheezes Gastrointestinal: soft, non-distended, no guarding, no rigidity Extremities: no cyanosis, no clubbing, no edema Extremities - other findings: No calf tenderness Musculoskeletal: generalized weakness Psychiatric: normal affect, A&O x 3 Hosp A/P (1) Acute on chronic respiratory failure with hypoxia and hypercapnia Code(s): J96.21 - ACUTE AND CHRONIC RESPIRATORY FAILURE WITH HYPOXIA; J96.22 - ACUTE AND CHRONIC RESPIRATORY FAILURE WITH HYPERCAPNIA Status: Acute (2) Acute on chronic diastolic heart failure Code(s): I50.33 - ACUTE ON CHRONIC DIASTOLIC (CONGESTIVE) HEART FAILURE Status : Acute (3) Atrial flutter with rapid ventricular response Code(s): I48.92 - UNSPECIFIED ATRIAL FLUTTER Status: Acute (4) COPD exacerbation Code(s): J44.1 - CHRONIC OBSTRUCTIVE PULMONARY DISEASE W (ACUTE) EXACERBATION Status: Acute (5) History of cardioversion Code(s): Z98.890 - OTHER SPECIFIED POSTPROCEDURAL STATES Status: Acute (6) Hyperkalemia Code(s): E87.5 - HYPERKALEMIA Status: Acute (7) Hyponatremia Code(s): E87.1 - HYPO-OSMOLALITY AND HYPONATREMIA Status: Acute (8) Toxic metabolic encephalopathy Code(s): G92 - TOXIC ENCEPHALOPATHY Status: Acute (9) Obesity (BMI 30.0-34.9) Code(s): E66.9 - OBESITY, UNSPECIFIED Status: Chronic (10) Tobacco abuse Code(s): Z72.0 - TOBACCO USE Status: Chronic (11) Obesity hypoventilation syndrome Code(s): E66.2 - MORBID (SEVERE) OBESITY WITH ALVEOLAR HYPOVENTILATION Status : Suspected (12) Obstructive sleep apnea Code(s): G47.33 - OBSTRUCTIVE SLEEP APNEA (ADULT) (PEDIATRIC) Status: Suspected - Plan DVT proph w/SCDs 07/23 Sodium today is 123. Will check urine and sodium osmolality as well as urine sodium. Add fluid restriction. Recheck labs at 3 PM today. Lasix on hold. Continue IV Levaquin with IV Solu-Medrol. Also on 1 mg/kg Lovenox for atrial flutter. Change Lyrica to 200 mg nightly per patient request. Recheck labs in a.m. Will consider nephrology consultation if her sodium does not improve. 07/22 Continue IV steroids with Levaquin. Continue nebulizer treatments. Patient is on full dose Lovenox. Continue IV Lasix. Recheck labs later today in a.m. Resume Lyrica. Low potassium diet. A.m. labs. Continue other medications as above
[2020-07-23 14:58] LABS: Chloride 87 mmol/L (98-107); Potassium 4.9 mmol/L (3.5-5.1); Sodium 127 mmol/L (136-145)
[2020-07-23 14:59] LABS: Calcium 8.1 mg/dL (7.8-10.44); Glucose 143 mg/dL (80-115)
[2020-07-23 15:01] LABS: Anion Gap 15 mmol/L (10-20); Carbon Dioxide 30 mmol/L (23-31)
[2020-07-23 15:02] LABS: Calc. Creatinine Clearance 94 mL/min (70-130); Estimated GFR-MDRD 69
[2020-07-23 15:03] LABS: BUN (Urea Nitrogen) 12 mg/dL (9.8-20.1)
--- NOTE | 2020-07-23 16:12 | PRG ---
DATE OF SERVICE: 07/23/2020 SUBJECTIVE: Ms. Orellana is doing reasonably well and wants to go home. OBJECTIVE: VITAL SIGNS: Temperature is 98.1, pulse 99, blood pressure 141/76, O2 saturation 92%. HEENT: Unremarkable. NECK: No JVD. LUNGS: Clear without wheezing or rhonchi. CARDIAC: S1 and S2, regular. ABDOMEN: Soft. EXTREMITIES: No edema. LABORATORY DATA: White blood cell count 5.2, hematocrit 42.7, and platelet count 189. Sodium 123, potassium 5.3, chloride 84, CO2 of 32, BUN 14, creatinine 0.6, and glucose 112. ASSESSMENT: 1. Atrial flutter. 2. Chronic obstructive pulmonary disease with exacerbation. 3. Worsening hyponatremia. RECOMMENDATIONS: 1. Switch her to oral prednisone. 2. I would go ahead and resume her Lasix. 3. We would assume she could go home once she has had her ablation procedure and her sodium level has improved. Job ID: [id number]
[2020-07-23] MEDS: Furosemide 40 MG/4 ML VIAL SLOW IVP SCH (16:21)
--- NOTE | 2020-07-23 16:38 | PRG ---
DATE OF SERVICE: 07/20/2020 SUBJECTIVE: Ms. Orellana feels much better. Her breathing is improved. No chest pain or pressure. OBJECTIVE: VITAL SIGNS: Her blood pressure 132/70 and pulse 90. LUNGS: Clear. CARDIAC: Normal S1 and normal S2. ASSESSMENT: 1. Chronic obstructive pulmonary disease, improved. 2. Atrial flutter. PLAN: Keep n.p.o. after midnight for possible atrial flutter ablation. Job ID: [id number]
[2020-07-23] MEDS: Pregabalin 50 MG CAP PO SCH (21:26)
[2020-07-23] MEDS: Melatonin 3 MG TAB PO SCH (21:27)
[2020-07-23] MEDS: Polyethylene Glycol 3350 17 GM Packet PO SCH (22:08)
[2020-07-24] MEDS ORDERED: Metoprolol Tartrate 5 MG/5 ML VIAL IVP PRN (00:17)
--- NOTE | 2020-07-24 00:39 | PDOC.EVN ---
Event Note - Event Note Event Note: Informed by nursing that patient converted to a flutter while up to the bathroom. Patient has a history of atrial flutter and is scheduled for ablation tomorrow. Heart rate in the 170s blood pressure 141/86. Discussed patient with Dr. East. One-time dose of Cardizem given. Patient became hypotensive at 97/49 but was still asymptomatic. Patient rested in bed and heart rate remained 130s. Blood pressure edilia to systolically in the 120s shortly after so a one-time dose of Lopressor ordered.
[2020-07-24 04:36] LABS: #Basophils 0.1 thou/uL (0.0-0.2); #Lymphocytes 2.5 thou/uL (1.20-3.40); #Monocytes 0.8 thou/uL (0.11-0.59); #Neutrophils 4.6 thou/uL (1.40-6.50); %Basophils 0.9 % (0.0-1.0); %Eosinophils 0.2 % (0.0-10.0); %Lymphocytes 31.1 % (21.0-51.0); %Monocytes 9.5 % (0.0-10.0); %Neutrophils 58.3 % (42.0-75.0); Hemoglobin 13.6 g/dL (12.0-16.0); Mean Corpuscular Hemoglobin 24.6 pg (27.0-31.0); Mean Corpuscular Volume 84.8 fL (78.0-98.0); Mean Platelet Volume 10.7 fL (7.4-10.4); Platelet Count 200 thou/uL (130-400); RBC Distribution Width 17.5 % (11.5-14.5); Red Blood Cell (RBC) Count 5.52 mill/uL (4.20-5.40); White Blood Cell (WBC) Count 7.9 thou/uL (4.8-10.8)
[2020-07-24 04:51] LABS: Anion Gap 12 mmol/L (10-20); BUN (Urea Nitrogen) 12 mg/dL (9.8-20.1); Calc. Creatinine Clearance 121 mL/min (70-130); Carbon Dioxide 32 mmol/L (23-31); Chloride 95 mmol/L (98-107); Estimated GFR-MDRD Greater than 90; Glucose 95 mg/dL (80-115); Potassium 4.9 mmol/L (3.5-5.1); Sodium 134 mmol/L (136-145)
[2020-07-24] MEDS: Mometasone 200 MCG/Formoterol 5 MCG 120 PUFF INHALER INH SCH ×2 (07:15→20:04)
[2020-07-24] MEDS ORDERED: Diltiazem 125 MG in Sodium Chloride 0.9% 100 ML IVPB SCH (08:15)
[2020-07-24] MEDS: guaiFENesin ER 600 MG TAB PO SCH ×2 (08:44→21:53)
[2020-07-24] MEDS: Aspirin 81 mg Enteric Coated Tablet PO SCH (08:44)
[2020-07-24] MEDS: predniSONE 20 MG TAB PO SCH (08:44)
[2020-07-24] MEDS: Furosemide 40 MG/4 ML VIAL SLOW IVP SCH (08:44)
[2020-07-24] MEDS ORDERED: PROPOFOL 200 MG/20 ML VIAL ONE (08:58)
[2020-07-24] MEDS ORDERED: Rocuronium Bromide 10 MG/ML (10ML VIAL) ONE (08:58)
[2020-07-24] MEDS ORDERED: PHENYLEPHRINE-NS 100 MCG/ML 10 ML SYRINGE ONE (08:58)
--- NOTE | 2020-07-24 13:31 | EKG ---
Test Reason : STAT Blood Pressure : / mmHG Vent. Rate : 138 BPM Atrial Rate : 147 BPM P-R Int : 000 ms QRS Dur : 070 ms QT Int : 298 ms P-R-T Axes : 000 065 075 degrees QTc Int : 451 ms Atrial fibrillation with rapid ventricular response with premature ventricular or aberrantly conducte d complexes Abnormal ECG When compared with ECG of 20-JUL-2020 18:41, (Unconfirmed) Atrial fibrillation has replaced Sinus rhythm Vent. rate has increased BY 54 BPM Criteria for Septal infarct are no longer Present Confirmed by ZARA CALDERON M.D. ([id number]) on 07/24/2020 1:31:33 PM Referred By: Woody VALDEZ Confirmed By:ZARA CALDERON M.D.
--- NOTE | 2020-07-24 14:14 | PDOC.HOSPP ---
- Subjective Encounter Date: 07/24/20 Encounter Time: 09:00 Subjective: Patient seen and examined for respiratory failure with atrial flutter. Overnight events noted. RN reported significant tachycardia with heart rate in 130s to 150s. Denies any chest pain. No significant change in shortness of breath. - Objective Vital Signs & Weight: Vital Signs (12 hours) Temp Pulse Resp BP Pulse Ox 07/24/20 11:50 98.7 F 124 H 18 120/53 L 91 L 07/24/20 10:52 104 H 16 07/24/20 08:29 99 F 125 H 20 92/53 L 90 L 07/24/20 07:16 127 H 16 07/24/20 04:00 98.0 F 99 22 H 101/54 L 90 L Weight Admit Weight 200 lb 11.2 oz Weight 197 lb 3.2 oz Most Recent Monitor Data Heart Rate from ECG 99 NIBP 130/59 NIBP BP-Mean 82 Respiration from ECG 24 SpO2 95 I&O: 07/23/20 07/24/20 07/25/20 06:59 06:59 06:59 Intake Total 1740 880 Output Total 2250 1960 Balance -510 -1080 Result Diagrams: 07/24/20 04:12 07/24/20 04:12 Additional Labs: Accuchecks 07/24/20 07/24/20 07/23/20 11:45 06:13 22:11 POC Glucose 112 H 90 109 EKG Reviewed by me: Yes (Telemetrynarrow complex tachyarrhythmia) Hospitalist ROS - Review of Systems Respiratory: reports: cough, dry, SOB with excertion. denies: shortness of breath, hemoptysis, pleuritic pain, sputum, wheezing, other Cardiovascular: reports: palpitations. denies: chest pain, orthopnea, paroxysmal noc. dyspnea, edema, light headedness, other - Medication Medications: Active Medications Generic Name Dose Route Start Last Admin Trade Name Freq PRN Reason Stop Dose Admin Acetaminophen 650 mg 07/20/20 22:29 07/22/20 08:08 Tylenol PO 650 mg Q4H PRN Administration Headache/Fever/Mild Pain (1-3) Albuterol/Ipratropium 3 ml 07/21/20 18:30 07/24/20 10:52 Duoneb NEB 3 ml [id number] RAMON Administration Aspirin 81 mg 07/21/20 09:00 07/24/20 08:44 Ecotrin PO 81 mg DAILY RAMON Administration Guaifenesin 600 mg 07/22/20 21:00 07/24/20 08:44 Mucinex PO 600 mg Q12HR RAMON Administration Diltiazem HCl 125 mg/ Sodium 125 mls @ 5 mls/hr 07/24/20 08:15 07/24/20 08:42 Chloride IVPB 125 mls INF RAMON Administration Protocol 5 MG/HR Levofloxacin 500 mg 07/24/20 09:00 07/24/20 08:44 Levaquin PO 500 mg DAILY RAMON Administration Melatonin 3 mg 07/22/20 21:00 07/23/20 21:27 Melatonin PO 3 mg HS RAMON Administration Metoprolol Tartrate 5 mg 07/24/20 00:17 07/24/20 01:05 Lopressor IVP 07/25/20 00:18 5 mg ONE PRN Administration Cardiac Arrythmia Mometasone Furoate/Formoterol Fumar 2 puff 07/21/20 06:30 07/24/20 07:15 Dulera 200 Mcg/5 Mcg Inhaler INH 2 puff BID-RT RAMON Administration Pantoprazole Sodium 40 mg 07/21/20 09:00 07/24/20 08:44 Protonix PO 40 mg DAILY RAMON Administration Polyethylene Glycol 17 gm 07/22/20 21:00 07/23/20 22:08 Miralax PO 17 gm HS RAMON Administration Prednisone 40 mg 07/24/20 09:00 07/24/20 08:44 Prednisone PO 40 mg DAILY RAMON Administration Pregabalin 200 mg 07/23/20 21:00 07/23/20 21:26 Lyrica PO 200 mg HS RAMON Administration Sodium Chloride 10 ml 07/21/20 21:00 07/24/20 08:45 Flush - Normal Saline IVF 10 ml Q12HR RAMON Administration - Exam General Appearance: ill appearing Neck: supple, no JVD Heart: no gallops Heart - other findings: Tachycardic Respiratory: rales, rhonchi Gastrointestinal: soft, non-tender, no guarding, no rigidity Psychiatric: normal affect, A&O x 3 Hosp A/P (1) Acute on chronic respiratory failure with hypoxia and hypercapnia Code(s): J96.21 - ACUTE AND CHRONIC RESPIRATORY FAILURE WITH HYPOXIA; J96.22 - ACUTE AND CHRONIC RESPIRATORY FAILURE WITH HYPERCAPNIA Status: Acute (2) Acute on chronic diastolic heart failure Code(s): I50.33 - ACUTE ON CHRONIC DIASTOLIC (CONGESTIVE) HEART FAILURE Status : Acute (3) Atrial flutter with rapid ventricular response Code(s): I48.92 - UNSPECIFIED ATRIAL FLUTTER Status: Acute (4) COPD exacerbation Code(s): J44.1 - CHRONIC OBSTRUCTIVE PULMONARY DISEASE W (ACUTE) EXACERBATION Status: Acute (5) History of cardioversion Code(s): Z98.890 - OTHER SPECIFIED POSTPROCEDURAL STATES Status: Acute (6) Hyperkalemia Code(s): E87.5 - HYPERKALEMIA Status: Acute (7) Toxic metabolic encephalopathy Code(s): G92 - TOXIC ENCEPHALOPATHY Status: Acute (8) Hyponatremia Code(s): E87.1 - HYPO-OSMOLALITY AND HYPONATREMIA Status: Acute (9) Obesity (BMI 30.0-34.9) Code(s): E66.9 - OBESITY, UNSPECIFIED Status: Chronic (10) Tobacco abuse Code(s): Z72.0 - TOBACCO USE Status: Chronic (11) Obesity hypoventilation syndrome Code(s): E66.2 - MORBID (SEVERE) OBESITY WITH ALVEOLAR HYPOVENTILATION Status : Suspected (12) Obstructive sleep apnea Code(s): G47.33 - OBSTRUCTIVE SLEEP APNEA (ADULT) (PEDIATRIC) Status: Suspected (13) Moderate mitral regurgitation Code(s): I34.0 - NONRHEUMATIC MITRAL (VALVE) INSUFFICIENCY Status: Chronic - Plan DVT proph w/lovenox 07/24 Sodium improved with fluid restriction and holding diuretics. Will change IV Lasix to p.o. Start IV Cardizem drip for tachyarrhythmia. Patient is n.p.o. for ablation. Patient is on Lovenox. Continue IV antibiotics with steroid and nebulizer treatment. Recheck labs in a.m. Continue other medications as above. 07/23 Sodium today is 123. Will check urine and sodium osmolality as well as urine sodium. Add fluid restriction. Recheck labs at 3 PM today. Lasix on hold. Continue IV Levaquin with IV Solu-Medrol. Also on 1 mg/kg Lovenox for atrial flutter. Change Lyrica to 200 mg nightly per patient request. Recheck labs in a.m. Will consider nephrology consultation if her sodium does not improve. 07/22 Continue IV steroids with Levaquin. Continue nebulizer treatments. Patient is on full dose Lovenox. Continue IV Lasix. Recheck labs later today in a.m. Resume Lyrica. Low potassium diet. A.m. labs. Continue other medications as above
[2020-07-24] MEDS ORDERED: Lidocaine 1% (PF) 30 ML VIAL ONE (15:56)
[2020-07-24] MEDS ORDERED: Fentanyl 100 MCG/2 ML VIAL ONE ×2 (16:42→17:00)
[2020-07-24] MEDS ORDERED: Propofol 1,000 MG/100 ML VIAL IV ONE (17:00)
[2020-07-24] MEDS ORDERED: Lidocaine 2% Jelly 5 ML TUBE ONE (17:03)
[2020-07-24] MEDS ORDERED: Phenylephrine 10 MG/ML VIAL ONE (17:26)
[2020-07-24] MEDS ORDERED: DOPamine 400 MG/D5W 250 ML 250 ML ONE (17:56)
--- NOTE | 2020-07-24 18:23 | PRG ---
DATE OF SERVICE: 07/24/2020 SUBJECTIVE: A 69-year-old morbidly obese female, who is to undergo a cardiac ablation today. OBJECTIVE: VITAL SIGNS: Temperature 99, pulse 104, respirations 16, saturations 94% on 4 L, blood pressure 90/53. GENERAL: She denies any difficulty breathing. CHEST: Decreased breath sounds. No wheezing. CARDIAC: Normal S1 and S2. No gallops. ABDOMEN: No masses. LABORATORY DATA: Sodium is 127. White count 7.9. X-ray did not show any acute infiltrates, but CAT scan showed right lower lung atelectatic changes. ASSESSMENT: Morbid obesity, chronic obstructive pulmonary disease, bronchitis, supraventricular tachycardia, hyponatremia. PLAN: 1. Continue neb treatments, supportive care, antibiotics. 2. Prednisone. We will follow. Job ID: [id number]
[2020-07-24] MEDS: Pregabalin 50 MG CAP PO SCH (21:53)
[2020-07-24] MEDS: Polyethylene Glycol 3350 17 GM Packet PO SCH (21:53)
[2020-07-24] MEDS: Melatonin 3 MG TAB PO SCH (21:53)
[2020-07-25 05:01] LABS: #Lymphocytes 2.2 thou/uL (1.20-3.40); #Monocytes 0.7 thou/uL (0.11-0.59); %Basophils 0.3 % (0.0-1.0); %Eosinophils 0.4 % (0.0-10.0); %Lymphocytes 24.3 % (21.0-51.0); %Neutrophils 67.1 % (42.0-75.0); Hemoglobin 12.9 g/dL (12.0-16.0); Mean Corpuscular HGB CONC 29.4 g/dL (32.0-36.0); Mean Corpuscular Hemoglobin 24.4 pg (27.0-31.0); Mean Corpuscular Volume 83.1 fL (78.0-98.0); Mean Platelet Volume 10.9 fL (7.4-10.4); Platelet Count 172 thou/uL (130-400); RBC Distribution Width 17.1 % (11.5-14.5); Red Blood Cell (RBC) Count 5.27 mill/uL (4.20-5.40)
--- NOTE | 2020-07-25 05:01 | OP ---
DATE OF PROCEDURE: 07/24/2020 Electrophysiology study and radiofrequency ablation report REASON FOR PROCEDURE: Mrs. Orellana is a 69-year-old woman with prior history of advanced COPD, presenting with COPD exacerbation and also diastolic CHF. She was noted to be in sustained atrial flutter. She was emergently cardioverted in the emergency room and maintained sinus rhythm, but later atrial flutter recurred which later converted over to atrial fibrillation. She is here for radiofrequency ablation. Her recurrent atrial fibrillation episode was less than 36 hours. PROCEDURE: The patient received general anesthesia specialist. The right femoral venous area was prepped, draped, and anesthetized using subcutaneous lidocaine. After adequate level of sedation achieved, the right femoral vein was cannulated x2 under ultrasound guidance. Two 8-Malay short sheath was introduced through which a ThermoCool SFST catheter was advanced to the right atrium and a Decapolar catheter was advanced to the right atrium right ventricle, His bundle, and CS position. Pacing, mapping and recording was performed at each location. The following findings were noted. Baseline rhythm was atrial fibrillation with cycle length of 750 milliseconds. QRS 56 milliseconds, QT 380 milliseconds. The HV measured 343 milliseconds at baseline. Following this, cardioversion was performed during sinus rhythm. The sinus node recovery time was measured to be 1286 milliseconds. Corrected sinus node recovery time was 355 milliseconds. AV Wenckebach was 330 milliseconds. Retrograde Wenckebach cycle was 370 milliseconds. AV jose luis ERP 600/220 milliseconds. Due to the typical isthmus dependent atrial flutter with morphology on the presenting rhythm, decision was made to proceed with cavotricuspid isthmus ablation. Cavotricuspid isthmus ablation was performed. A total of 11 lesions delivered. We were able to prolong the transisthmus edel from baseline 30 milliseconds to 130 milliseconds. Unilateral block was demonstrated by longest transisthmus time measured by the ablation line. Following that burst atrial pacing did not reinduce atrial arrhythmias. The baseline cardiac silhouette did not change with the procedure. The catheter was removed and the vascular access site was closed with Vascade closure. CONCLUSION: 1. Successful cavotricuspid isthmus ablation. 2. Normal sinus jose luis and AV jose luis His-Purkinje function. No evidence of accessory pathway or dual AV jose luis physiology is present. 3. No re-inducible arrhythmia in the end of the case. PLAN: 1. Monitor for recurrent atrial fibrillation. 2. Consider resuming oral anticoagulation. 3. Monitor for small baseline pericardial effusion. Job ID: [id number]
[2020-07-25 05:20] LABS: Anion Gap 12 mmol/L (10-20); BUN (Urea Nitrogen) 13 mg/dL (9.8-20.1); Calc. Creatinine Clearance 113 mL/min (70-130); Calcium 7.7 mg/dL (7.8-10.44); Carbon Dioxide 33 mmol/L (23-31); Chloride 94 mmol/L (98-107); Estimated GFR-MDRD 88; Glucose 101 mg/dL (80-115); Magnesium 2.3 mg/dL (1.6-2.6); Potassium 4.3 mmol/L (3.5-5.1); Sodium 135 mmol/L (136-145)
[2020-07-25] MEDS: Mometasone 200 MCG/Formoterol 5 MCG 120 PUFF INHALER INH SCH (06:40)
[2020-07-25] MEDS ORDERED: Furosemide 40 MG TAB PO SCH (07:30)
[2020-07-25] MEDS: guaiFENesin ER 600 MG TAB PO SCH (08:20)
[2020-07-25] MEDS: predniSONE 20 MG TAB PO SCH (08:20)
[2020-07-25] MEDS: Aspirin 81 mg Enteric Coated Tablet PO SCH (08:20)
--- NOTE | 2020-07-25 09:58 | PRG ---
DATE OF SERVICE: 07/25/2020 SUBJECTIVE: She is status post EP study yesterday. Pulmonary barnett, she is doing well. No coughing, wheezing, or chest pain. She wants to go home. She is status post ablation. OBJECTIVE: VITAL SIGNS: Saturations are 91% on 4 L, temperature respiratory rate 16, blood pressure CHEST: No wheezing. No crackles. CARDIAC: Normal S1, S2. No gallops. ABDOMEN: No masses. LABORATORY DATA: Unremarkable. ASSESSMENT AND PLAN: 1. Supraventricular tachycardia, status post ablation. 2. Chronic obstructive pulmonary disease, ongoing tobacco abuse, respiratory failure. Pulmonary barnett, she is stable enough to be discharged home. Taper steroids over the course of a week. Follow up with the primary care physician. Job ID: [id number]
[2020-07-25] MEDS ORDERED: Apixaban 5 MG TAB PO SCH ×2 (11:45→21:00)
[2020-07-25 11:51] LABS: Neutrophil 78 % (42-75)
[2020-07-25 12:18] VITALS: BP 132/59; TEMP 97.7
--- NOTE | 2020-07-25 15:27 | DIS ---
DATE OF ADMISSION: 07/20/2020 DATE OF DISCHARGE: 07/25/2020 DISCHARGE DISPOSITION: Home. FOLLOWUP: 1. Follow up with primary care physician, Dr. Parra, on 31 July 2020. 2. Follow up with Cardiology and Electrophysiology as scheduled. 3. Follow up with Pulmonary as scheduled. DISCHARGE MEDICATIONS: 1. Prednisone taper. 2. Levaquin 500 mg daily for next 4 days. 3. Eliquis 5 mg p.o. b.i.d. 4. Protonix 40 mg daily. 5. Cardizem CD 120 mg daily. 6. Lasix 20 mg daily. 7. Lyrica 200 mg b.i.d. 8. Zocor 20 mg daily. 9. Dulera 2 puffs b.i.d. The patient was seen and examined on the day of discharge. Denies any new complaints. No chest pain, shortness of breath, palpitations, nausea, vomiting reported. BRIEF HOSPITAL COURSE: The patient is a 69-year-old female with COPD and diastolic heart failure, currently on home oxygen, presented to the emergency room on 20 July 2020 with shortness of breath along with chest discomfort. She was found to have heart rate in 170s with hypoxia. She was started on Cardizem drip with eventual cardioversion on admission due to unstable vital signs. She was monitored in the intermediate care unit and was started on steroids, nebulizer treatment, antibiotics, as well as noninvasive positive-pressure ventilation. Her condition gradually improved. She was later transitioned to telemetry floor. Yesterday, she underwent radiofrequency ablation for atrial flutter by Dr. Goddard. She has been started on Lovenox that will be transitioned to Eliquis. She understands the risk associated with anticoagulation. Dr. Goddard also recommended AV jose luis agents, which will be initiated on the day of discharge. The patient has been cleared by consultants for discharge. DIAGNOSTIC TESTS AND LAB FINDINGS: ABGs on admission showed pH of 7.1 with pCO2 of 124.5, pO2 of 59.2, with O2 saturation of 85% with bicarbonate of 41. Sodium on admission was 127 with potassium of 5.5, chloride of 87, bicarbonate of 33. BNP was 244. CT angiogram of the chest was negative for pulmonary embolism. It showed right-sided bronchial occlusion with right-sided pleural effusion and [id number] mediastinal and hilar lymphadenopathy. Echocardiogram on 23 July 2020, showed ejection fraction of 55% to 60% with [id number] dilatation of the left atrium, moderate mitral regurgitation. FINAL DIAGNOSES: 1. Acute on chronic hypoxic and hypercapnic respiratory failure, requiring noninvasive positive-pressure ventilation. 2. Acute on chronic diastolic heart failure, requiring IV diuretics. 3. Atrial flutter with rapid ventricular response, requiring cardioversion due to unstable vital signs. 4. Chronic obstructive pulmonary disease exacerbation. 5. Hyperkalemia. 6. Hyponatremia. 7. Toxic-metabolic encephalopathy on admission. 8. Obesity with a BMI of 33.6. 9. Tobacco dependence. 10. Obesity hypoventilation syndrome. 11. Suspected obstructive sleep apnea. TIME SPENT: Time coordinating the discharge of this patient was 34 minutes. Job ID: [id number]
--- NOTE | 2020-07-25 18:02 | PDOC.EP ---
- Subjective Date: 07/25/20 Time: 08:00 Interval History: she feels well 1 day post ablation. She has had no heart racing, palpitations, chest pain, stroke-like symptoms, near syncope or passing out. + chronic cough - Review of Systems Constitutional: denies: chills, fever, sweats, weakness Respiratory: reports: cough, shortness of breath. denies: dry, hemoptysis Cardiology: denies: chest pain, edema, heart racing, light headedness, pleuritic pain Gastrointestinal: denies: abdominal pain, constipation, diarrhea - Objective Allergies/Adverse Reactions: Allergies Allergy/AdvReac Type Severity Reaction Status Date / Time bee venom protein (honey bee) Allergy Verified 01/28/20 12:34 codeine Allergy Hives Verified 01/28/20 12:34 Penicillins Allergy Verified 01/28/20 12:34 tramadol Allergy Hives Verified 01/28/20 12:34 gabapentin AdvReac DIZZINESS Verified 01/28/20 12:34 Vital Signs & Weight: Vital Signs Temp Pulse Resp BP Pulse Ox 07/25/20 12:10 97.7 F 88 16 132/59 L 95 07/25/20 10:34 85 18 90 L 07/25/20 07:30 99.3 F 63 16 134/73 91 L 07/25/20 06:39 75 16 89 L Admit Weight 200 lb 11.2 oz Weight 202 lb 3.2 oz I/O: I/O 07/24/20 07/25/20 07/26/20 06:59 06:59 06:59 Intake Total 880 890 Output Total 1718 2830 Balance -1080 -1940 - Quality Measures CV meds: Eliquis: Yes - Physical Exam General: alert & oriented x3, appears well, no apparent distress, speech clear, affect appropriate HEENT: mucus membranes moist, normocephaly Neck: supple neck, midline trachea, no JVD/HJR, no masses, no bruit, no lymphadenopathy, no thromegaly Cardiology: regular rate and rhythm, no murmur, regular rate, regular rhythm, PMI nondisplaced Lungs: no rhonchi, decreased breath sounds, wheezes Neurology: cranial nerve 2-12 intact, grossly intact, coordination normal Abdomen: unremarkable, active bowel sounds, HJR negative Skin: groin sites stable - Labs Result Diagrams: 07/25/20 04:24 07/25/20 04:24 - EKG Interpretation EKG Method: Telemetry EKG shows: Sinus rhythm - Assessment/Plan Assessment/Plan: 1. Newly found atrial flutter with rapid ventricular rates requiring emergent cardioversion on admission, 07/20/2020. a. transient atrial fibrillation seen 2. Acute on chronic obstructive pulmonary disease exacerbation requiring BiPAP with altered mental status. 3. diastolic heart failure. 4. Preserved LVEF by 2D echo from 04/10/2019. Azcl-hb-cbahirht MR, mild -to-moderate TR, and elevated pulmonary pressures of approximately 52. maintaining sinus rhythm status post EP study and CTI flutter ablation on 07/24/2020. Initiating oral anticoagulation on Eliquis 5mg BID for at least 30 days post ablation. She was seen to have some atrial fibrillation but would go from atrial flutter into AFib. Monitor for recurrent atrial fibrillation and c onsider Multaq if recurrence is seen. She has a history of bleeding complications on warfarin from a bleeding gastric ulcer that was endovascularly repaired. stressed the importance of watching for bleeding complications with Eliquis. okay for discharge by EP. Follow-up in 6 weeks will be arranged
--- NOTE | 2020-07-26 10:25 | EKG ---
Test Reason : POST OP Blood Pressure : / mmHG Vent. Rate : 080 BPM Atrial Rate : 080 BPM P-R Int : 140 ms QRS Dur : 074 ms QT Int : 384 ms P-R-T Axes : 021 049 055 degrees QTc Int : 442 ms Sinus rhythm with Premature supraventricular complexes Abnormal ECG When compared with ECG of 23-JUL-2020 22:29, Sinus rhythm has replaced Atrial fibrillation Vent. rate has decreased BY 58 BPM Confirmed by ZARA CALDERON M.D. ([id number]) on 07/26/2020 10:24:53 AM Referred By: Confirmed By:ZARA CALDERON M.D.
--- NOTE | 2020-07-26 10:25 | EKG ---
Test Reason : Blood Pressure : / mmHG Vent. Rate : 082 BPM Atrial Rate : 082 BPM P-R Int : 144 ms QRS Dur : 072 ms QT Int : 384 ms P-R-T Axes : 039 059 074 degrees QTc Int : 448 ms Sinus rhythm with Premature atrial complexes Otherwise normal ECG When compared with ECG of 24-JUL-2020 18:57, (Unconfirmed) T wave amplitude has increased in Anterior leads Confirmed by ZARA CALDERON M.D. ([id number]) on 07/26/2020 10:25:11 AM Referred By: ERICA Confirmed By:ZARA CALDERON M.D.
== END 2020-07-25 14:45 | disposition home or self-care (01) | DRG 273 ==
LOC: ERS 18:09 → IMCU/EMU 20:42 → 2NO 07-23 21:15
PROVIDERS: ADMIT Internal Medicine; ATTEND Internal Medicine
PROC: 5A2204Z Restoration of Cardiac Rhythm, Single (ICD-10-PCS; 2020-07-20)
PROC: 5A09357 Assistance with Respiratory Ventilation, Less than 24 Consecutive Hours, Continuous Positive Airway Pressure (ICD-10-PCS; 2020-07-20)
PROC: 02583ZZ Destruction of Conduction Mechanism, Percutaneous Approach (ICD-10-PCS; principal; 2020-07-24)
PROC: 4A023FZ Measurement of Cardiac Rhythm, Percutaneous Approach (ICD-10-PCS; 2020-07-24)
PROC: 4A0234Z Measurement of Cardiac Electrical Activity, Percutaneous Approach (ICD-10-PCS; 2020-07-24)
PROC: 02K83ZZ Map Conduction Mechanism, Percutaneous Approach (ICD-10-PCS; 2020-07-24)
DX: I48.92 Unspecified atrial flutter (principal); J96.21 Acute and chronic respiratory failure with hypoxia; J96.22 Acute and chronic respiratory failure with hypercapnia; I50.33 Acute on chronic diastolic (congestive) heart failure; G92 Toxic encephalopathy; J44.1 Chronic obstructive pulmonary disease with (acute) exacerbation; E87.1 Hypo-osmolality and hyponatremia; E66.2 Morbid (severe) obesity with alveolar hypoventilation; Z20.828 Contact with and (suspected) exposure to other viral communicable diseases; E87.5 Hyperkalemia; I08.1 Rheumatic disorders of both mitral and tricuspid valves; E78.5 Hyperlipidemia, unspecified; F17.200 Nicotine dependence, unspecified, uncomplicated; J40 Bronchitis, not specified as acute or chronic; I48.91 Unspecified atrial fibrillation; I47.1 Supraventricular tachycardia; Z68.33 Body mass index [BMI] 33.0-33.9, adult; Z98.41 Cataract extraction status, right eye; Z79.899 Other long term (current) drug therapy; Z79.82 Long term (current) use of aspirin; Z88.5 Allergy status to narcotic agent; Z88.0 Allergy status to penicillin; Z88.8 Allergy status to other drugs, medicaments and biological substances
CPT/HCPCS: 36415; 36416; 71045; 71275; 76942; 80048; 80053; 82550; 82553; 82805; 83605; 83690; 83735; 83880; 83930; 83935; 84300; 84443; 84484; 85025; 87040; 87149; 93005; 93010; 93306; 93613; 93621; 93623; 93653; 94640; 94660; 96365; 96366; 96367; 96372; 96375; 97139; 99152; C1730; C1732; J1265; J1644; J1650; J1940; J1956; J2001; J2370; J2405; J2704; J2920; J2930; J3010; J3370; J3475; J3490; J7512; J7620; Q9967; U0002